=== PATIENT | male | born 1970 | race African-American/Black ===

== ENCOUNTER 2016-10-16 16:27 | Emergency (ER) | payer MEDICAID ==
[~2016-10-16] VITALS: Ht 190.5 cm; Wt 125.0 kg
[~2016-10-16 16:27] MED LIST: ASPI-1159 PO; LABE200T PO; LEVVL SUBCUT; LOSA50TA3 PO; NIFE60TA64 PO; TERA2CAP53 PO
[2016-10-16] MEDS ORDERED: KETOROLAC 60MG/2ML VIAL IM ONE (22:15)
[2016-10-16 22:57] LABS: CLARITY URINE CLOUDY (CLEAR); COLOR URINE YELLOW (YELLOW); GLUCOSE URINE 3+ (NEGATIVE); KETONES URINE 1+ (NEGATIVE); LEUKOCYTE ESTERASE URINE TRACE (NEGATIVE); NITRITE URINE NEGATIVE (NEGATIVE); OCCULT BLOOD URINE 3+ (NEGATIVE); PROTEIN URINE 3+ (NEGATIVE); SPECIFIC GRAVITY URINE 1.028 (1.005-1.030)
[2016-10-16 23:00] VITALS: BP 193/129
[2016-10-16 23:43] LABS: BASOPHILS % 1.6 % (0.0-2.0); EOSINOPHILS % 0.9 % (0.0-5.0); HEMATOCRIT. 40.2 % (42.0-52.0); HEMOGLOBIN. 13.8 g/dL (14.0-18.0); MEAN CORPUSCULAR HEMOGLOBIN 30.8 pg (28.0-32.0); MEAN CORPUSCULAR VOLUME 89.4 fL (80.0-94.0); MEAN PLATELET VOLUME 11.5 fl (7.4-10.4); MONOCYTES % 7.8 % (2.0-8.0); NEUTROPHILS % 68.7 % (40.0-76.0); PLATELET 151 x1000/uL (130-400); RED CELL DISTRIBUTION WIDTH 12.7 % (11.6-14.6)
[2016-10-17 00:23] LABS: CARBON DIOXIDE 27 mEq/L (21-32); CHLORIDE 98 mEq/L (98-107)
== END 2016-10-17 02:00 | disposition home or self-care (01) ==
LOC: ER 16:39
DX: R31.9 Hematuria, unspecified (principal); I10 Essential (primary) hypertension; E11.9 Type 2 diabetes mellitus without complications; Z86.73 Personal history of transient ischemic attack (TIA), and cerebral infarction without residual deficits; Z79.4 Long term (current) use of insulin; Z79.01 Long term (current) use of anticoagulants; Z79.82 Long term (current) use of aspirin
CPT/HCPCS: 36415; 80053; 81001; 85025; 96372; 99284; J1885; Z7610

== ENCOUNTER 2018-02-08 21:26 | Inpatient (IN) | payer SELFPAY ==
[~2018-02-08] VITALS: Ht 188 cm; Wt 108.0 kg
[~2018-02-08 21:26] MED LIST changes: -ASPI-1159 PO; -LABE200T PO; -LOSA50TA3 PO; -NIFE60TA64 PO; +TERA2CAP4 PO; -TERA2CAP53 PO
[2018-02-08] MEDS ORDERED: SODIUM CHLORIDE 0.9% 1,000 ML IV ONE (21:58)
[2018-02-08] MEDS ORDERED: HYDRALAZINE 20MG/ML VIAL IV ONE ×2 (22:00→23:45)
[2018-02-08 23:17] LABS: BASOPHILS % 0.7 % (0.0-2.0); EOSINOPHILS % 0.9 % (0.0-5.0); HEMATOCRIT. 38.7 % (42.0-52.0); HEMOGLOBIN. 13.2 g/dL (14.0-18.0); LYMPHOCYTES % 29.1 % (20.0-50.0); MEAN CORPUSCULAR VOLUME 90.9 fL (80.0-94.0); MEAN PLATELET VOLUME 12.3 fl (7.4-10.4); MONOCYTES % 7.6 % (2.0-8.0); NEUTROPHILS % 61.7 % (40.0-76.0); PLATELET 138 x1000/uL (130-400); RED BLOOD CELL COUNT 4.26 mill/uL (4.7-6.1); RED CELL DISTRIBUTION WIDTH 12.8 % (11.6-14.6)
[2018-02-08 23:22] LABS: CHLORIDE 91 mEq/L (98-107)
[2018-02-08 23:24] LABS: PROTHROMBIN TIME 9.6 sec (9.1-11.1)
[2018-02-08 23:35] LABS: BETA HYDROXYBUTYRATE 0.1 mMol/L (0.0-0.3); ETHANOL BLOOD < 10 mg/dL
[2018-02-08] MEDS ORDERED: POTASSIUM CHLORIDE 20MEQ TABLET SR PO ONE (23:45)
[2018-02-09] VITALS (11 sets, daily range): BP systolic 93–179; BP diastolic 47–111
[2018-02-09] MEDS ORDERED: INSULIN GLARGINE UD 100 UNITS/ML SYR SUBCUT ONE (00:15)
[2018-02-09] MEDS ORDERED: ASPIRIN 325MG TABLET PO ONE (01:00)
[2018-02-09] MEDS ORDERED: HYDRALAZINE 20MG/ML VIAL IV ONE (01:45)
[2018-02-09 01:53] LABS: CHLORIDE 97 mEq/L (98-107)
[2018-02-09] MEDS: SODIUM CHLORIDE 0.45% 1,000 ML IV SCH ×2 (02:00→07:00)
[2018-02-09] MEDS ORDERED: TERA1CAP4 PO (03:14)
[2018-02-09] MEDS ORDERED: LABE200T28 PO (03:14)
[2018-02-09] MEDS ORDERED: KEPP500 PO (03:14)
[2018-02-09] MEDS ORDERED: NIFE90TA2 PO (03:14)
[2018-02-09] MEDS ORDERED: DEXTROSE 50% WATER 50ML SYRINGE IV PRN ×2 (03:15→07:00)
[2018-02-09] MEDS ORDERED: NIFEDIPINE 60 MG PO SCH (03:15)
[2018-02-09] MEDS: NIFEDIPINE XL 60MG TAB PO SCH ×2 (03:30→22:29)
[2018-02-09] MEDS ORDERED: ACETAMINOPHEN 325MG TABLET PO PRN ×2 (03:30→06:45)
[2018-02-09] MEDS ORDERED: ONDANSETRON HCL 4MG/2ML INJ IV PRN ×2 (03:30→06:45)
[2018-02-09] MEDS: CLONIDINE 0.1MG TABLET PO PRN ×2 (04:36→08:42)
[2018-02-09] MEDS ORDERED: NA PHOS,M-B/NA PHOS,DI-BA ENEMA 118ML PR PRN (06:45)
[2018-02-09] MEDS ORDERED: IPRATROPIUM/ALBUTEROL 0.5-3(2.5)MG/3ML NEB INH PRN (06:45)
[2018-02-09] MEDS ORDERED: MAGNESIUM/ALUMINUM HYDROXIDE/SIMETHICONE 30ML UDC PO PRN (06:45)
[2018-02-09] MEDS ORDERED: ENOXAPARIN 40MG/0.4ML SYR SUBCUT SCH (06:45)
[2018-02-09] MEDS ORDERED: ACETAMINOPHEN 650MG/20.3ML UDC GT PRN (06:45)
[2018-02-09] MEDS ORDERED: DOCUSATE SODIUM 100MG CAPSULE PO PRN (06:45)
[2018-02-09] MEDS ORDERED: ACETAMINOPHEN 650MG SUPP PR PRN (06:45)
[2018-02-09] MEDS ORDERED: CLONIDINE 0.1MG TABLET PO PRN (06:45)
[2018-02-09] MEDS ORDERED: LABETALOL HCL 200 MG PO SCH (07:00)
[2018-02-09] MEDS ORDERED: BLOOD SUGAR DIAGNOSTIC STRIP TEST SCH (07:30)
[2018-02-09] MEDS ORDERED: INSULIN LISPRO 100 UNITS/ML SUBCUT SCH (08:00)
[2018-02-09] MEDS: BLOOD SUGAR DIAGNOSTIC STRIP TEST SCH ×4 (08:17→20:48)
[2018-02-09] MEDS: LEVETIRACETAM 500MG TABLET PO SCH ×2 (08:42→20:48)
[2018-02-09] MEDS: LABETALOL HCL 200MG TABLET PO SCH ×2 (08:43→22:32)
[2018-02-09] MEDS: ENOXAPARIN 30MG/0.3ML SYR SUBCUT SCH ×2 (08:43→20:51)
[2018-02-09] MEDS: INSULIN LISPRO 100 UNITS/ML SUBCUT SCH ×4 (08:44→20:50)
[2018-02-09 09:16] LABS: BASOPHILS % 0.6 % (0.0-2.0); EOSINOPHILS % 0.3 % (0.0-5.0); HEMATOCRIT. 42.7 % (42.0-52.0); HEMOGLOBIN. 14.5 g/dL (14.0-18.0); LYMPHOCYTES % 19.8 % (20.0-50.0); MEAN CORPUSCULAR HEMOGLOBIN 30.7 pg (28.0-32.0); MEAN CORPUSCULAR VOLUME 90.3 fL (80.0-94.0); MEAN PLATELET VOLUME 11.7 fl (7.4-10.4); NEUTROPHILS % 74.3 % (40.0-76.0); PLATELET 143 x1000/uL (130-400); RED BLOOD CELL COUNT 4.72 mill/uL (4.7-6.1); RED CELL DISTRIBUTION WIDTH 12.9 % (11.6-14.6)
[2018-02-09 09:30] LABS: CHLORIDE 96 mEq/L (98-107)
[2018-02-09] MEDS: INSULIN GLARGINE UD 100 UNITS/ML SYR SUBCUT SCH ×2 (09:48→22:20)
[2018-02-09 09:59] LABS: HDL CHOLESTEROL 36 mg/dL (40-59); LDL CHOLESTEROL 61 mg/dL (5-100)
[2018-02-09] MEDS ORDERED: INSULIN DETEMIR 20 UNIT SUBCUT SCH (10:00)
[2018-02-09] MEDS ORDERED: HYDRALAZINE 20MG/ML VIAL IV PRN (10:45)
[2018-02-09] MEDS: LOSARTAN POTASSIUM 25 MG TABLET PO SCH (11:28)
[2018-02-09] MEDS: POTASSIUM CHLORIDE 20MEQ TABLET SR PO SCH ×2 (11:28→16:58)
[2018-02-09] MEDS: SODIUM CHLORIDE 0.9% INJ 3ML FLUSH IVF SCH (13:19)
[2018-02-09] MEDS ORDERED: POTASSIUM CHLORIDE 20MEQ TABLET SR PO NR (14:45)
[2018-02-09 15:18] LABS: CREATINE KINASE MB FRACTION 4.3 ng/mL (0.5-3.6)
[2018-02-09 17:50] LABS: CLARITY URINE CLEAR (CLEAR); COLOR URINE YELLOW (YELLOW); KETONES URINE NEGATIVE (NEGATIVE); LEUKOCYTE ESTERASE URINE NEGATIVE (NEGATIVE); NITRITE URINE NEGATIVE (NEGATIVE); OCCULT BLOOD URINE NEGATIVE (NEGATIVE); PH URINE 5.5 (4.5-8.0); PROTEIN URINE 1+ (NEGATIVE); SPECIFIC GRAVITY URINE 1.036 (1.005-1.030)
[2018-02-09 18:00] LABS: *BARBITURATES SCREEN URINE NEGATIVE (NEGATIVE); *BENZODIAZEPINES SCREEN URINE NEGATIVE (NEGATIVE); *COCAINE SCREEN URINE NEGATIVE (NEGATIVE)
[2018-02-09] MEDS ORDERED: POTASSIUM CHLORIDE 20MEQ TABLET SR PO ONE (18:00)
[2018-02-09 18:01] LABS: *AMPHETAMINES SCREEN URINE NEGATIVE (NEGATIVE); CANNABINOID URINE SCREEN NEGATIVE (NEGATIVE); METHADONE URINE SCREEN NEGATIVE (NEGATIVE); OPIATES URINE SCREEN NEGATIVE (NEGATIVE); PHENCYCLIDINE URINE SCREEN NEGATIVE (NEGATIVE)
[2018-02-09] MEDS ORDERED: TERAZOSIN HCL 1MG CAPSULE PO SCH (21:00)
[2018-02-09 22:44] LABS: CREATINE KINASE MB FRACTION 3.6 ng/mL (0.5-3.6)
[2018-02-10] VITALS (12 sets, daily range): BP systolic 102–159; BP diastolic 55–106
[2018-02-10] MEDS ORDERED: POTASSIUM CHLORIDE 20MEQ TABLET SR PO PRN
[2018-02-10 05:38] LABS: BASOPHILS % 0.8 % (0.0-2.0); EOSINOPHILS % 2.2 % (0.0-5.0); HEMATOCRIT. 35.7 % (42.0-52.0); HEMOGLOBIN. 12.2 g/dL (14.0-18.0); MEAN CORPUSCULAR VOLUME 90.9 fL (80.0-94.0); MEAN PLATELET VOLUME 12.6 fl (7.4-10.4); MONOCYTES % 8.5 % (2.0-8.0); NEUTROPHILS % 46.5 % (40.0-76.0); PLATELET 135 x1000/uL (130-400); RED BLOOD CELL COUNT 3.93 mill/uL (4.7-6.1)
[2018-02-10 06:00] LABS: CHLORIDE 103 mEq/L (98-107)
[2018-02-10 06:08] LABS: HDL CHOLESTEROL 31 mg/dL (40-59); LDL CHOLESTEROL 51 mg/dL (5-100)
[2018-02-10] MEDS: BLOOD SUGAR DIAGNOSTIC STRIP TEST SCH ×2 (08:24→11:51)
[2018-02-10] MEDS: INSULIN LISPRO 100 UNITS/ML SUBCUT SCH ×2 (09:36→12:34)
[2018-02-10] MEDS: LABETALOL HCL 200MG TABLET PO SCH (09:37)
[2018-02-10] MEDS: INSULIN GLARGINE UD 100 UNITS/ML SYR SUBCUT SCH (09:37)
[2018-02-10] MEDS: ENOXAPARIN 30MG/0.3ML SYR SUBCUT SCH (09:37)
[2018-02-10] MEDS: NIFEDIPINE XL 60MG TAB PO SCH (09:38)
[2018-02-10] MEDS: LEVETIRACETAM 500MG TABLET PO SCH (09:38)
[2018-02-10] MEDS: LOSARTAN POTASSIUM 25 MG TABLET PO SCH (09:38)
[2018-02-10] MEDS: POTASSIUM CHLORIDE 20MEQ TABLET SR PO SCH (09:38)
[2018-02-10] MEDS: SODIUM CHLORIDE 0.45% 1,000 ML IV SCH (09:39)
[2018-02-10] MEDS ORDERED: MAGNESIUM SULFATE 2 GM in DEXTROSE 5% WATER 50 ML IV NR (12:00)
[2018-02-10] MEDS: SODIUM CHLORIDE 0.9% INJ 3ML FLUSH IVF SCH (13:10)
== END 2018-02-10 15:40 | disposition home or self-care (01) | DRG 53 ==
LOC: ER 21:26 → 5EST 02-09 00:53 → EDBEDREQTM 02-09 00:56 → EDBEDREQSVC 02-09 00:56 → EDBEDREQDT 02-09 00:56 → EDBEDREQ 02-09 00:56 → ENRESERV 02-09 01:46
PROVIDERS: ADMIT Family Medicine; ATTEND Family Medicine
DX: G40.909 Epilepsy, unspecified, not intractable, without status epilepticus (principal); N17.0 Acute kidney failure with tubular necrosis; I11.0 Hypertensive heart disease with heart failure; I50.32 Chronic diastolic (congestive) heart failure; I67.4 Hypertensive encephalopathy; E11.65 Type 2 diabetes mellitus with hyperglycemia; Z96.659 Presence of unspecified artificial knee joint; E87.6 Hypokalemia; N40.0 Benign prostatic hyperplasia without lower urinary tract symptoms; I25.2 Old myocardial infarction; Z86.73 Personal history of transient ischemic attack (TIA), and cerebral infarction without residual deficits; Z91.19 Patient's noncompliance with other medical treatment and regimen; Z79.84 Long term (current) use of oral hypoglycemic drugs
CPT/HCPCS: 36415; 71045; 80048; 80061; 80305; 82010; 82550; 82553; 82962; 83036; 83735; 84132; 84484; 85379; 93005; 93306; 93880; 93970; 96361; 96372; 96374; 96376; 99291; G0482; J0360; J1650; J1815; J3475; J7030; J7060

== ENCOUNTER 2018-10-29 14:10 | Inpatient (IN) | payer MEDICAID ==
[2018-10-29] VITALS (16 sets, daily range): BP systolic 127–175; BP diastolic 76–111
[~2018-10-29] VITALS: Ht 190.5 cm; Wt 83.5 kg
[~2018-10-29 14:10] MED LIST changes: +KEPP500 PO; +LABE200T28 PO; +NIFE90TA2 PO; +TERA1CAP4 PO
[2018-10-29 14:54] LABS: BASOPHILS % 1.3 % (0.0-2.0); EOSINOPHILS % 3.2 % (0.0-5.0); HEMOGLOBIN. 12.2 g/dL (14.0-18.0); LYMPHOCYTES % 25.1 % (20.0-50.0); MEAN CORPUSCULAR VOLUME 91.7 fL (80.0-94.0); MEAN PLATELET VOLUME 11.5 fl (7.4-10.4); MONOCYTES % 8.8 % (2.0-8.0); NEUTROPHILS % 61.6 % (40.0-76.0); PLATELET 140 x1000/uL (130-400); RED BLOOD CELL COUNT 3.93 mill/uL (4.7-6.1)
[2018-10-29 15:01] LABS: PROTHROMBIN TIME 10.1 sec (9.6-11.0)
[2018-10-29 15:03] LABS: CHLORIDE 105 mEq/L (98-107)
[2018-10-29 15:07] LABS: ETHANOL BLOOD < 10 mg/dL
[2018-10-29 15:10] LABS: LDL CHOLESTEROL 103 mg/dL (5-100)
[2018-10-29] MEDS ORDERED: LABETALOL 5MG/ML SYR 20 MG/4 ML SYRINGE IV ONE (15:15)
[2018-10-29] MEDS ORDERED: NICARDIPINE 40MG/200ML PREMIX 200 ML IV SCH (16:00)
[2018-10-29] MEDS ORDERED: CLONIDINE 0.1MG TABLET PO PRN ×2 (17:00→17:30)
[2018-10-29] MEDS ORDERED: LOSARTAN POTASSIUM 50 MG TABLET PO NR (17:06)
[2018-10-29 17:12] LABS: CLARITY URINE CLEAR (CLEAR); COLOR URINE YELLOW (YELLOW); KETONES URINE TRACE (NEGATIVE); LEUKOCYTE ESTERASE URINE NEGATIVE (NEGATIVE); NITRITE URINE NEGATIVE (NEGATIVE); OCCULT BLOOD URINE NEGATIVE (NEGATIVE); PROTEIN URINE 1+ (NEGATIVE); SPECIFIC GRAVITY URINE 1.023 (1.005-1.030)
[2018-10-29 17:24] LABS: *AMPHETAMINES SCREEN URINE NEGATIVE (NEGATIVE); *BARBITURATES SCREEN URINE NEGATIVE (NEGATIVE); *BENZODIAZEPINES SCREEN URINE NEGATIVE (NEGATIVE); *COCAINE SCREEN URINE NEGATIVE (NEGATIVE); CANNABINOID URINE SCREEN NEGATIVE (NEGATIVE); OPIATES URINE SCREEN NEGATIVE (NEGATIVE); PHENCYCLIDINE URINE SCREEN NEGATIVE (NEGATIVE)
[2018-10-29 17:25] LABS: METHADONE URINE SCREEN NEGATIVE (NEGATIVE)
[2018-10-29] MEDS ORDERED: HYDROCODONE/ACETAMINOPHEN 5/325MG TABLET PO PRN (17:30)
[2018-10-29] MEDS ORDERED: MAGNESIUM/ALUMINUM HYDROXIDE/SIMETHICONE 30ML UDC PO PRN (17:30)
[2018-10-29] MEDS ORDERED: IPRATROPIUM/ALBUTEROL 0.5-3(2.5)MG/3ML NEB INH PRN (17:30)
[2018-10-29] MEDS ORDERED: ACETAMINOPHEN 325MG TABLET PO PRN (17:30)
[2018-10-29] MEDS ORDERED: GUAIFENESIN 200MG/10ML SUGAR FREE UDC PO PRN (17:30)
[2018-10-29] MEDS ORDERED: DOCUSATE SODIUM 100MG CAPSULE PO PRN (17:30)
[2018-10-29] MEDS ORDERED: ONDANSETRON HCL 4MG/2ML INJ IV PRN (17:30)
[2018-10-29] MEDS ORDERED: DIPHENHYDRAMINE 50MG/ML VIAL IV PRN (17:30)
[2018-10-29 17:59] LABS: PHOSPHORUS 3.4 mg/dL (2.5-4.9)
[2018-10-29] MEDS ORDERED: NICARDIPINE 40MG/200ML PREMIX 200 ML IV PRN (19:15)
[2018-10-29] MEDS: LABETALOL HCL 200MG TABLET PO SCH (21:00)
[2018-10-29] MEDS: NICARDIPINE 50 MG in SODIUM CHLORIDE 0.9% 230 ML IV PRN (21:22)
[2018-10-29] MEDS: ENOXAPARIN 30MG/0.3ML SYR SUBCUT SCH (23:04)
[2018-10-30] VITALS (86 sets, daily range): BP systolic 75–192; BP diastolic 13–117
[2018-10-30] MEDS: NICARDIPINE 50 MG in SODIUM CHLORIDE 0.9% 230 ML IV PRN ×2 (00:29→07:58)
[2018-10-30 05:23] LABS: BASOPHILS % 0.5 % (0.0-2.0); EOSINOPHILS % 3.1 % (0.0-5.0); HEMATOCRIT. 37.3 % (42.0-52.0); HEMOGLOBIN. 12.7 g/dL (14.0-18.0); LYMPHOCYTES % 28.7 % (20.0-50.0); MEAN CORPUSCULAR HEMOGLOBIN 31.1 pg (28.0-32.0); MEAN CORPUSCULAR VOLUME 91.6 fL (80.0-94.0); MONOCYTES % 6.7 % (2.0-8.0); PLATELET 138 x1000/uL (130-400); RED BLOOD CELL COUNT 4.08 mill/uL (4.7-6.1); RED CELL DISTRIBUTION WIDTH 13.2 % (11.6-14.6)
[2018-10-30 05:32] LABS: CHLORIDE 104 mEq/L (98-107)
[2018-10-30 05:48] LABS: CREATINE KINASE 139 IU/L (39-308); CREATINE KINASE MB FRACTION 1.4 ng/mL (0.5-3.6)
[2018-10-30 05:49] LABS: LDL CHOLESTEROL 106 mg/dL (5-100)
[2018-10-30 05:50] LABS: HDL CHOLESTEROL 34 mg/dL (40-59)
[2018-10-30] MEDS ORDERED: DEXTROSE 50% WATER 50ML SYRINGE IV PRN (08:45)
[2018-10-30] MEDS ORDERED: SITA100T11 MT (08:55)
[2018-10-30] MEDS ORDERED: BENA20TA10 PO (08:55)
[2018-10-30] MEDS ORDERED: ERGO2000 PO (08:55)
[2018-10-30] MEDS ORDERED: POTASSIUM CHLORIDE 20MEQ TABLET SR PO NR (08:56)
[2018-10-30] MEDS: LABETALOL HCL 200MG TABLET PO SCH ×2 (10:42→21:49)
[2018-10-30] MEDS: LOSARTAN POTASSIUM 50 MG TABLET PO SCH ×2 (10:44→21:50)
[2018-10-30] MEDS: ENOXAPARIN 30MG/0.3ML SYR SUBCUT SCH (10:47)
[2018-10-30] MEDS: BLOOD SUGAR DIAGNOSTIC STRIP TEST SCH ×3 (11:30→21:40)
[2018-10-30] MEDS: INSULIN LISPRO 100 UNITS/ML SUBCUT SCH ×3 (13:02→21:48)
[2018-10-30] MEDS ORDERED: HYDRALAZINE 20MG/ML VIAL IV PRN (16:30)
[2018-10-30] MEDS: NIFEDIPINE XL 30MG TAB PO SCH (17:24)
[2018-10-30] MEDS: TERAZOSIN HCL 1MG CAPSULE PO SCH (21:50)
[2018-10-31] VITALS (68 sets, daily range): BP systolic 98–182; BP diastolic 44–135
[2018-10-31] MEDS: CLONIDINE 0.1MG TABLET PO PRN ×2 (05:12→22:50)
[2018-10-31 05:17] LABS: CHLORIDE 105 mEq/L (98-107)
[2018-10-31] MEDS: BLOOD SUGAR DIAGNOSTIC STRIP TEST SCH ×4 (06:17→20:20)
[2018-10-31] MEDS: INSULIN LISPRO 100 UNITS/ML SUBCUT SCH ×4 (06:22→20:28)
[2018-10-31] MEDS: NIFEDIPINE XL 30MG TAB PO SCH ×2 (08:54→17:40)
[2018-10-31] MEDS: LABETALOL HCL 200MG TABLET PO SCH ×2 (08:55→20:27)
[2018-10-31] MEDS: ENOXAPARIN 40MG/0.4ML SYR SUBCUT SCH (08:55)
[2018-10-31] MEDS: LOSARTAN POTASSIUM 50 MG TABLET PO SCH ×2 (08:55→20:27)
[2018-10-31 09:20] LABS: BASOPHILS % 0.8 % (0.0-2.0); EOSINOPHILS % 1.4 % (0.0-5.0); HEMATOCRIT. 39.6 % (42.0-52.0); HEMOGLOBIN. 13.2 g/dL (14.0-18.0); MEAN CORPUSCULAR HEMOGLOBIN 30.9 pg (28.0-32.0); MEAN CORPUSCULAR VOLUME 92.7 fL (80.0-94.0); MEAN PLATELET VOLUME 11.5 fl (7.4-10.4); MONOCYTES % 5.9 % (2.0-8.0); NEUTROPHILS % 75.9 % (40.0-76.0); PLATELET 154 x1000/uL (130-400); RED BLOOD CELL COUNT 4.28 mill/uL (4.7-6.1); RED CELL DISTRIBUTION WIDTH 13.3 % (11.6-14.6)
[2018-10-31] MEDS: CLOPIDOGREL 75MG TABLET PO SCH (17:40)
[2018-10-31] MEDS: TERAZOSIN HCL 1MG CAPSULE PO SCH (20:27)
[2018-10-31] MEDS: LEVETIRACETAM 500MG TABLET PO SCH (20:27)
[2018-10-31] MEDS ORDERED: ATORVASTATIN CALCIUM 40MG TABLET PO SCH (21:00)
[2018-10-31] MEDS ORDERED: ATORVASTATIN CALCIUM 20MG TABLET PO SCH (21:00)
[2018-11-01] VITALS (18 sets, daily range): BP systolic 118–171; BP diastolic 71–97
[2018-11-01 05:11] LABS: CHLORIDE 103 mEq/L (98-107)
[2018-11-01 05:15] LABS: BASOPHILS % 0.5 % (0.0-2.0); EOSINOPHILS % 2.3 % (0.0-5.0); HEMATOCRIT. 39.3 % (42.0-52.0); HEMOGLOBIN. 13.2 g/dL (14.0-18.0); LYMPHOCYTES % 27.3 % (20.0-50.0); MEAN CORPUSCULAR HEMOGLOBIN 30.6 pg (28.0-32.0); MEAN PLATELET VOLUME 11.2 fl (7.4-10.4); MONOCYTES % 7.8 % (2.0-8.0); NEUTROPHILS % 62.1 % (40.0-76.0); PLATELET 143 x1000/uL (130-400); RED BLOOD CELL COUNT 4.31 mill/uL (4.7-6.1); RED CELL DISTRIBUTION WIDTH 13.3 % (11.6-14.6)
[2018-11-01] MEDS: BLOOD SUGAR DIAGNOSTIC STRIP TEST SCH ×2 (06:50→11:30)
[2018-11-01] MEDS: INSULIN LISPRO 100 UNITS/ML SUBCUT SCH ×2 (06:53→13:15)
[2018-11-01] MEDS: LABETALOL HCL 200MG TABLET PO SCH (08:29)
[2018-11-01] MEDS: ENOXAPARIN 40MG/0.4ML SYR SUBCUT SCH (08:30)
[2018-11-01] MEDS: LEVETIRACETAM 500MG TABLET PO SCH (08:30)
[2018-11-01] MEDS: CLOPIDOGREL 75MG TABLET PO SCH (08:30)
[2018-11-01] MEDS: NIFEDIPINE XL 30MG TAB PO SCH ×2 (08:30→09:45)
[2018-11-01] MEDS: LOSARTAN POTASSIUM 50 MG TABLET PO SCH ×2 (08:31→09:45)
[2018-11-01] MEDS ORDERED: INSULIN GLARGINE UD 100 UNITS/ML SYR SUBCUT SCH (10:00)
== END 2018-11-01 13:50 | disposition home or self-care (01) | DRG 45 ==
LOC: ER 14:10 → MICUSO 15:51 → EDBEDREQSVC 15:55 → EDBEDREQ 15:55 → ENRESERV 17:45
PROVIDERS: ADMIT Internal Medicine; ATTEND Internal Medicine
DX: I63.9 Cerebral infarction, unspecified (principal); G93.41 Metabolic encephalopathy; N17.9 Acute kidney failure, unspecified; E11.22 Type 2 diabetes mellitus with diabetic chronic kidney disease; I31.3 Pericardial effusion (noninflammatory); E88.81 Metabolic syndrome and other insulin resistance; I12.9 Hypertensive chronic kidney disease with stage 1 through stage 4 chronic kidney disease, or unspecified chronic kidney disease; N18.9 Chronic kidney disease, unspecified; E87.6 Hypokalemia; D64.9 Anemia, unspecified; E78.5 Hyperlipidemia, unspecified; G40.909 Epilepsy, unspecified, not intractable, without status epilepticus; I16.1 Hypertensive emergency; N40.0 Benign prostatic hyperplasia without lower urinary tract symptoms; Z79.4 Long term (current) use of insulin; Z79.899 Other long term (current) drug therapy; I69.30 Unspecified sequelae of cerebral infarction
CPT/HCPCS: 36415; 70551; 71045; 80061; 80305; 80307; 80320; 80329; 82140; 82550; 82553; 82962; 83036; 83721; 83735; 83880; 84100; 84443; 84484; 85379; 93005; 93306; 93880; 93970; 96374; 96375; 97116; 97162; 97166; 99285; J0360; J1650; J1815; J3490; J7050; G0480

== ENCOUNTER 2019-07-25 14:07 | Inpatient (IN) | payer MEDICAID ==
[~2019-07-25] VITALS: Ht 182.9 cm; Wt 130.2 kg
[~2019-07-25 14:07] MED LIST changes: +BENA20TA10 PO; +ERGO2000 PO; +SITA100T11 MT
[2019-07-25] MEDS ORDERED: ALTEPLASE 100MG/VIAL IV NR (15:11)
[2019-07-25] MEDS ORDERED: ALTEPLASE IV NR (15:11)
[2019-07-25] MEDS ORDERED: CONTAINER EMPTY IV NR (15:11)
[2019-07-25 15:30] LABS: BASOPHILS % 0.5 % (0.0-2.0); EOSINOPHILS % 0.9 % (0.0-5.0); HEMATOCRIT. 43.5 % (42.0-52.0); HEMOGLOBIN. 14.7 g/dL (14.0-18.0); LYMPHOCYTES % 19.3 % (20.0-50.0); MEAN CORPUSCULAR HEMOGLOBIN 31.2 pg (28.0-32.0); MEAN CORPUSCULAR VOLUME 92.4 fL (80.0-94.0); MEAN PLATELET VOLUME 12.7 fl (7.4-10.4); MONOCYTES % 7.2 % (2.0-8.0); NEUTROPHILS % 72.1 % (40.0-76.0); PLATELET 130 x1000/uL (130-400); RED BLOOD CELL COUNT 4.71 mill/uL (4.7-6.1); RED CELL DISTRIBUTION WIDTH 12.7 % (11.6-14.6)
[2019-07-25] MEDS ORDERED: ALTEPLASE 81 MG in CONTAINER,EMPTY 1 BAG IV NR (15:30)
[2019-07-25 15:34] LABS: CHLORIDE 98 mEq/L (98-107)
[2019-07-25 15:36] LABS: PROTHROMBIN TIME 10.5 sec (9.6-11.0)
[2019-07-25 15:40] LABS: ETHANOL BLOOD < 10 mg/dL
[2019-07-25 15:42] LABS: LDL CHOLESTEROL 107 mg/dL (5-100)
[2019-07-25] MEDS ORDERED: SODIUM CHLORIDE 0.9% 1,000 ML IV ONE (15:43)
[2019-07-25] MEDS ORDERED: INSULIN REGULAR (HUMULIN R) 300UNITS/3ML IV ONE (15:45)
[2019-07-25] MEDS ORDERED: LABETALOL 5MG/ML SYR 20 MG/4 ML SYRINGE IV ONE (16:00)
[2019-07-25] MEDS ORDERED: HALOPERIDOL LACTATE 5MG/ML VIAL IM ONE ×2 (16:12→16:15)
[2019-07-25] MEDS ORDERED: LORAZEPAM 2MG/ML CPJ IV ONE (16:15)
[2019-07-25] MEDS ORDERED: NICARDIPINE 100 MG in SODIUM CHLORIDE 0.9% 60 ML IV ONE (16:15)
[2019-07-25 16:44] LABS: *BARBITURATES SCREEN URINE NEGATIVE (NEGATIVE)
[2019-07-25 16:45] LABS: *AMPHETAMINES SCREEN URINE NEGATIVE (NEGATIVE); *BENZODIAZEPINES SCREEN URINE NEGATIVE (NEGATIVE); *COCAINE SCREEN URINE NEGATIVE (NEGATIVE); CANNABINOID URINE SCREEN NEGATIVE (NEGATIVE); METHADONE URINE SCREEN NEGATIVE (NEGATIVE); OPIATES URINE SCREEN NEGATIVE (NEGATIVE); PHENCYCLIDINE URINE SCREEN NEGATIVE (NEGATIVE)
[2019-07-25] MEDS ORDERED: *NO ASPIRIN X 24 HOURS XX SCH (17:00)
[2019-07-25 17:28] LABS: CLARITY URINE CLEAR (CLEAR); COLOR URINE YELLOW (YELLOW); KETONES URINE NEGATIVE (NEGATIVE); LEUKOCYTE ESTERASE URINE NEGATIVE (NEGATIVE); NITRITE URINE NEGATIVE (NEGATIVE); OCCULT BLOOD URINE 1+ (NEGATIVE); PROTEIN URINE NEGATIVE (NEGATIVE); SPECIFIC GRAVITY URINE 1.015 (1.005-1.030)
[2019-07-25] MEDS ORDERED: HYDROCODONE/ACETAMINOPHEN 5/325MG TABLET PO PRN (19:15)
[2019-07-25] MEDS ORDERED: KCL 20MEQ/100ML PREMIX 100 ML IV NR (19:15)
[2019-07-25] MEDS ORDERED: IPRATROPIUM/ALBUTEROL 0.5-3(2.5)MG/3ML NEB HHN PRN (19:15)
[2019-07-25] MEDS ORDERED: ONDANSETRON HCL 4MG/2ML INJ IV PRN (19:15)
[2019-07-25] MEDS ORDERED: LORAZEPAM 0.5MG TABLET PO PRN (19:15)
[2019-07-25] MEDS ORDERED: ACETAMINOPHEN 325MG TABLET PO PRN (19:15)
[2019-07-25] MEDS ORDERED: IOHEXOL-350 100 ML BOTTLE ONE (20:03)
[2019-07-25 20:05] LABS: INR 1.2; PROTHROMBIN TIME 13.1 sec (9.6-11.0)
[2019-07-25] MEDS ORDERED: LEVETIRACETAM 500MG TABLET PO SCH (20:15)
[2019-07-25] MEDS: INSULIN GLARGINE UD 100 UNITS/ML SYR SUBCUT SCH ×2 (22:00→22:19)
[2019-07-26] VITALS (53 sets, daily range): BP systolic 140–204; BP diastolic 69–170
[2019-07-26] MEDS ORDERED: INSULIN LISPRO (HIGH DOSE) 100 UNITS/ML SUBCUT SCH (02:15)
[2019-07-26] MEDS ORDERED: DEXTROSE 50% WATER 50ML SYRINGE IV PRN (06:00)
[2019-07-26] MEDS: BLOOD SUGAR DIAGNOSTIC STRIP TEST SCH ×4 (07:08→21:00)
[2019-07-26] MEDS ORDERED: INSULIN LISPRO 100 UNITS/ML SUBCUT SCH (08:20)
[2019-07-26] MEDS ORDERED: LEVETIRACETAM 500MG TABLET PO SCH (09:00)
[2019-07-26] MEDS: LEVETIRACETAM 500MG PREMIX 100 ML IV SCH ×2 (09:00→21:22)
[2019-07-26] MEDS ORDERED: HALOPERIDOL LACTATE 5MG/ML VIAL IM PRN (09:30)
[2019-07-26] MEDS ORDERED: LORAZEPAM 2MG/ML CPJ IV PRN (09:30)
[2019-07-26] MEDS ORDERED: INSULIN GLARGINE UD 100 UNITS/ML SYR SUBCUT SCH ×2 (10:00)
[2019-07-26] MEDS: SODIUM CHLORIDE 0.9% 1,000 ML IV SCH ×2 (10:11→23:12)
[2019-07-26] MEDS: LABETALOL 5MG/ML SYR 20 MG/4 ML SYRINGE IV PRN ×2 (10:30→21:22)
[2019-07-26] MEDS: INSULIN GLARGINE UD 100 UNITS/ML SYR SUBCUT SCH ×2 (11:39→23:11)
[2019-07-26] MEDS: INSULIN LISPRO 100 UNITS/ML SUBCUT SCH ×3 (11:41→22:35)
[2019-07-26] MEDS ORDERED: NICARDIPINE 50 MG in SODIUM CHLORIDE 0.9% 230 ML IV PRN (12:00)
[2019-07-26] MEDS ORDERED: LABETALOL 5MG/ML SYR 20 MG/4 ML SYRINGE IV NR (16:00)
[2019-07-26] MEDS ORDERED: THIAMINE HCL 100 MG in SODIUM CHLORIDE 0.9% 49 ML IV SCH (16:30)
[2019-07-27] VITALS (31 sets, daily range): BP systolic 142–219; BP diastolic 83–153
[2019-07-27 00:13] LABS: BASOPHILS % 0.4 % (0.0-2.0); EOSINOPHILS % 0.2 % (0.0-5.0); HEMATOCRIT. 40.3 % (42.0-52.0); HEMOGLOBIN. 13.8 g/dL (14.0-18.0); LYMPHOCYTES % 17.2 % (20.0-50.0); MEAN CORPUSCULAR HEMOGLOBIN 31.5 pg (28.0-32.0); MEAN PLATELET VOLUME 12.2 fl (7.4-10.4); MONOCYTES % 5.9 % (2.0-8.0); NEUTROPHILS % 76.3 % (40.0-76.0); PLATELET 137 x1000/uL (130-400); RED BLOOD CELL COUNT 4.39 mill/uL (4.7-6.1)
[2019-07-27 00:27] LABS: CHLORIDE 108 mEq/L (98-107)
[2019-07-27 00:35] LABS: LDL CHOLESTEROL 92 mg/dL (5-100)
[2019-07-27 00:36] LABS: CREATINE KINASE 375 IU/L (39-308); HDL CHOLESTEROL 36 mg/dL (40-59)
[2019-07-27] MEDS ORDERED: POTASSIUM CHLORIDE INJ 40 MEQ in DEXT 5% WATER 500 ML IV NR ×2 (03:00→08:00)
[2019-07-27] MEDS: LABETALOL 5MG/ML SYR 20 MG/4 ML SYRINGE IV PRN (03:29)
[2019-07-27] MEDS: BLOOD SUGAR DIAGNOSTIC STRIP TEST SCH ×3 (05:53→21:32)
[2019-07-27] MEDS: INSULIN LISPRO 100 UNITS/ML SUBCUT SCH ×4 (06:37→21:38)
[2019-07-27] MEDS: LEVETIRACETAM 500MG PREMIX 100 ML IV SCH ×2 (09:00→21:40)
[2019-07-27] MEDS ORDERED: POTASSIUM CHLORIDE INJ 40 MEQ in DEXT 5% WATER 250 ML IV NR (09:05)
[2019-07-27] MEDS: NIFEDIPINE XL 60MG TAB PO SCH (09:11)
[2019-07-27] MEDS: LABETALOL HCL 200MG TABLET PO SCH ×2 (09:12→21:37)
[2019-07-27] MEDS: BENAZEPRIL 10MG TABLET PO SCH (09:12)
[2019-07-27] MEDS: CLONIDINE 0.1MG TABLET PO PRN (09:12)
[2019-07-27] MEDS ORDERED: LIDOCAINE HCL 1% 20ML VIAL (Pyxis) INJ ONE (10:12)
[2019-07-27] MEDS: INSULIN GLARGINE UD 100 UNITS/ML SYR SUBCUT SCH ×2 (12:54→21:38)
[2019-07-27] MEDS: SODIUM CHLORIDE 0.9% 1,000 ML IV SCH (12:55)
[2019-07-27] MEDS: LABETALOL HCL 20MG/4ML CARPUJECT IV PRN (14:28)
[2019-07-27 14:31] LABS: BASOPHILS % 0.3 % (0.0-2.0); EOSINOPHILS % 0.8 % (0.0-5.0); HEMOGLOBIN. 14.3 g/dL (14.0-18.0); LYMPHOCYTES % 17.4 % (20.0-50.0); MEAN CORPUSCULAR HEMOGLOBIN 31.4 pg (28.0-32.0); MEAN CORPUSCULAR VOLUME 92.4 fL (80.0-94.0); MEAN PLATELET VOLUME 11.5 fl (7.4-10.4); MONOCYTES % 7.7 % (2.0-8.0); NEUTROPHILS % 73.8 % (40.0-76.0); PLATELET 141 x1000/uL (130-400); RED BLOOD CELL COUNT 4.55 mill/uL (4.7-6.1); RED CELL DISTRIBUTION WIDTH 12.9 % (11.6-14.6)
[2019-07-27 14:37] LABS: CHLORIDE 108 mEq/L (98-107)
[2019-07-27 14:42] LABS: PHOSPHORUS 2.6 mg/dL (2.5-4.9)
[2019-07-28] VITALS (11 sets, daily range): BP systolic 132–186; BP diastolic 66–109
[2019-07-28] MEDS: SODIUM CHLORIDE 0.9% 1,000 ML IV SCH ×2 (02:00→14:50)
[2019-07-28 06:39] LABS: BASOPHILS % 0.8 % (0.0-2.0); EOSINOPHILS % 2.5 % (0.0-5.0); HEMATOCRIT. 40.7 % (42.0-52.0); HEMOGLOBIN. 13.9 g/dL (14.0-18.0); LYMPHOCYTES % 29.5 % (20.0-50.0); MEAN CORPUSCULAR HEMOGLOBIN 31.7 pg (28.0-32.0); MEAN CORPUSCULAR VOLUME 92.8 fL (80.0-94.0); MEAN PLATELET VOLUME 11.6 fl (7.4-10.4); MONOCYTES % 9.4 % (2.0-8.0); NEUTROPHILS % 57.8 % (40.0-76.0); PLATELET 140 x1000/uL (130-400); RED BLOOD CELL COUNT 4.39 mill/uL (4.7-6.1); RED CELL DISTRIBUTION WIDTH 13.2 % (11.6-14.6)
[2019-07-28] MEDS: BLOOD SUGAR DIAGNOSTIC STRIP TEST SCH ×4 (06:53→21:10)
[2019-07-28 07:08] LABS: CHLORIDE 106 mEq/L (98-107)
[2019-07-28] MEDS: INSULIN LISPRO 100 UNITS/ML SUBCUT SCH ×4 (07:20→21:00)
[2019-07-28] MEDS: LEVETIRACETAM 500MG PREMIX 100 ML IV SCH ×2 (08:33→21:07)
[2019-07-28] MEDS: BENAZEPRIL 10MG TABLET PO SCH (08:34)
[2019-07-28] MEDS: LABETALOL HCL 200MG TABLET PO SCH ×2 (08:34→21:09)
[2019-07-28] MEDS: NIFEDIPINE XL 60MG TAB PO SCH (08:34)
[2019-07-28] MEDS: INSULIN GLARGINE UD 100 UNITS/ML SYR SUBCUT SCH ×2 (10:34→21:08)
[2019-07-28] MEDS ORDERED: POTASSIUM CHLORIDE INJ 40 MEQ in DEXT 5% WATER 250 ML IV NR (11:15)
[2019-07-28] MEDS: CLOPIDOGREL 75MG TABLET PO SCH (11:38)
[2019-07-28] MEDS: ASPIRIN 81MG TABLET PO SCH (11:38)
[2019-07-28] MEDS: LABETALOL HCL 20MG/4ML CARPUJECT IV PRN (11:45)
[2019-07-28] MEDS: ATORVASTATIN CALCIUM 40MG TABLET PO SCH (21:08)
[2019-07-29] VITALS (15 sets, daily range): BP systolic 143–190; BP diastolic 95–129
[2019-07-29] MEDS: SODIUM CHLORIDE 0.9% 1,000 ML IV SCH (02:20)
[2019-07-29] MEDS: CLONIDINE 0.1MG TABLET PO PRN ×2 (04:38→12:32)
[2019-07-29] MEDS: BLOOD SUGAR DIAGNOSTIC STRIP TEST SCH ×4 (06:42→21:02)
[2019-07-29] MEDS: INSULIN LISPRO 100 UNITS/ML SUBCUT SCH ×4 (07:20→21:00)
[2019-07-29 07:39] LABS: BASOPHILS % 0.8 % (0.0-2.0); EOSINOPHILS % 3.8 % (0.0-5.0); HEMATOCRIT. 41.7 % (42.0-52.0); HEMOGLOBIN. 13.9 g/dL (14.0-18.0); LYMPHOCYTES % 27.9 % (20.0-50.0); MEAN CORPUSCULAR HEMOGLOBIN 31.2 pg (28.0-32.0); MEAN CORPUSCULAR VOLUME 93.2 fL (80.0-94.0); MEAN PLATELET VOLUME 12.1 fl (7.4-10.4); MONOCYTES % 7.1 % (2.0-8.0); NEUTROPHILS % 60.4 % (40.0-76.0); PLATELET 140 x1000/uL (130-400); RED BLOOD CELL COUNT 4.47 mill/uL (4.7-6.1)
[2019-07-29 07:40] LABS: CHLORIDE 108 mEq/L (98-107)
[2019-07-29] MEDS: ASPIRIN 81MG TABLET PO SCH (08:16)
[2019-07-29] MEDS: LEVETIRACETAM 500MG PREMIX 100 ML IV SCH (08:16)
[2019-07-29] MEDS: CLOPIDOGREL 75MG TABLET PO SCH (08:16)
[2019-07-29] MEDS: BENAZEPRIL 10MG TABLET PO SCH (08:18)
[2019-07-29] MEDS: LABETALOL HCL 200MG TABLET PO SCH ×2 (08:18→21:12)
[2019-07-29] MEDS: NIFEDIPINE XL 60MG TAB PO SCH (08:18)
[2019-07-29] MEDS: INSULIN GLARGINE UD 100 UNITS/ML SYR SUBCUT SCH ×2 (11:06→21:57)
[2019-07-29] MEDS ORDERED: POTASSIUM CHLORIDE INJ 40 MEQ in DEXT 5% WATER 250 ML IV NR (12:00)
[2019-07-29] MEDS: LEVETIRACETAM 500MG TABLET PO SCH (21:11)
[2019-07-29] MEDS: ATORVASTATIN CALCIUM 40MG TABLET PO SCH (21:12)
[2019-07-30] VITALS (17 sets, daily range): BP systolic 139–213; BP diastolic 79–152
[2019-07-30] MEDS: CLONIDINE 0.1MG TABLET PO PRN ×3 (03:05→22:41)
[2019-07-30] MEDS: BLOOD SUGAR DIAGNOSTIC STRIP TEST SCH ×4 (05:57→21:09)
[2019-07-30 06:25] LABS: CHLORIDE 108 mEq/L (98-107)
[2019-07-30 06:35] LABS: BASOPHILS % 0.6 % (0.0-2.0); EOSINOPHILS % 4.5 % (0.0-5.0); HEMATOCRIT. 39.6 % (42.0-52.0); HEMOGLOBIN. 13.5 g/dL (14.0-18.0); LYMPHOCYTES % 33.4 % (20.0-50.0); MEAN CORPUSCULAR HEMOGLOBIN 31.6 pg (28.0-32.0); MEAN CORPUSCULAR VOLUME 92.6 fL (80.0-94.0); MEAN PLATELET VOLUME 11.7 fl (7.4-10.4); MONOCYTES % 11.4 % (2.0-8.0); NEUTROPHILS % 50.1 % (40.0-76.0); PLATELET 148 x1000/uL (130-400); RED BLOOD CELL COUNT 4.28 mill/uL (4.7-6.1)
[2019-07-30] MEDS: INSULIN LISPRO 100 UNITS/ML SUBCUT SCH ×4 (07:20→21:00)
[2019-07-30] MEDS: NIFEDIPINE XL 60MG TAB PO SCH (08:19)
[2019-07-30] MEDS: LEVETIRACETAM 500MG TABLET PO SCH ×2 (08:20→21:17)
[2019-07-30] MEDS: CLOPIDOGREL 75MG TABLET PO SCH (08:20)
[2019-07-30] MEDS: LABETALOL HCL 200MG TABLET PO SCH ×2 (08:20→21:27)
[2019-07-30] MEDS: ASPIRIN 81MG TABLET PO SCH (08:20)
[2019-07-30] MEDS: BENAZEPRIL 10MG TABLET PO SCH (08:20)
[2019-07-30] MEDS: INSULIN GLARGINE UD 100 UNITS/ML SYR SUBCUT SCH ×2 (10:33→21:39)
[2019-07-30] MEDS ORDERED: POTASSIUM CHLORIDE INJ 40 MEQ in DEXT 5% WATER 250 ML IV NR (11:00)
[2019-07-30] MEDS: ATORVASTATIN CALCIUM 40MG TABLET PO SCH (21:27)
[2019-07-31] VITALS (12 sets, daily range): BP systolic 126–191; BP diastolic 72–123
[2019-07-31] MEDS: CLONIDINE 0.1MG TABLET PO PRN (05:55)
[2019-07-31] MEDS: BLOOD SUGAR DIAGNOSTIC STRIP TEST SCH ×3 (05:55→21:00)
[2019-07-31 06:15] LABS: BASOPHILS % 0.6 % (0.0-2.0); EOSINOPHILS % 2.8 % (0.0-5.0); HEMATOCRIT. 40.5 % (42.0-52.0); HEMOGLOBIN. 13.6 g/dL (14.0-18.0); LYMPHOCYTES % 34.7 % (20.0-50.0); MEAN CORPUSCULAR HEMOGLOBIN 31.2 pg (28.0-32.0); MEAN PLATELET VOLUME 11.6 fl (7.4-10.4); MONOCYTES % 9.3 % (2.0-8.0); NEUTROPHILS % 52.6 % (40.0-76.0); PLATELET 154 x1000/uL (130-400); RED BLOOD CELL COUNT 4.35 mill/uL (4.7-6.1); RED CELL DISTRIBUTION WIDTH 13.2 % (11.6-14.6)
[2019-07-31 06:27] LABS: CHLORIDE 107 mEq/L (98-107)
[2019-07-31] MEDS: INSULIN LISPRO 100 UNITS/ML SUBCUT SCH ×3 (07:20→21:34)
[2019-07-31] MEDS: CLOPIDOGREL 75MG TABLET PO SCH (09:37)
[2019-07-31] MEDS: ASPIRIN 81MG TABLET PO SCH (09:37)
[2019-07-31] MEDS: BENAZEPRIL 10MG TABLET PO SCH (09:38)
[2019-07-31] MEDS: NIFEDIPINE XL 60MG TAB PO SCH ×2 (09:38→21:39)
[2019-07-31] MEDS: LEVETIRACETAM 500MG TABLET PO SCH ×2 (09:53→21:36)
[2019-07-31] MEDS: LABETALOL HCL 200MG TABLET PO SCH ×2 (09:54→21:00)
[2019-07-31] MEDS ORDERED: POTASSIUM CHLORIDE 20MEQ TABLET SR PO NR (10:00)
[2019-07-31] MEDS ORDERED: NIFEDIPINE XL 60MG TAB PO SCH (10:00)
[2019-07-31] MEDS: CLONIDINE 0.2MG TABLET PO SCH ×2 (10:29→17:14)
[2019-07-31] MEDS: INSULIN GLARGINE UD 100 UNITS/ML SYR SUBCUT SCH ×2 (13:23→21:35)
[2019-07-31] MEDS: ATORVASTATIN CALCIUM 40MG TABLET PO SCH (21:37)
[2019-08-01] VITALS (12 sets, daily range): BP systolic 132–161; BP diastolic 43–115
[2019-08-01] MEDS: CLONIDINE 0.1MG TABLET PO PRN (00:45)
[2019-08-01] MEDS: BLOOD SUGAR DIAGNOSTIC STRIP TEST SCH ×4 (06:25→20:36)
[2019-08-01] MEDS: INSULIN LISPRO 100 UNITS/ML SUBCUT SCH ×4 (06:25→20:36)
[2019-08-01 06:40] LABS: BASOPHILS % 0.8 % (0.0-2.0); EOSINOPHILS % 3.2 % (0.0-5.0); HEMOGLOBIN. 13.4 g/dL (14.0-18.0); LYMPHOCYTES % 31.7 % (20.0-50.0); MEAN CORPUSCULAR HEMOGLOBIN 31.7 pg (28.0-32.0); MEAN CORPUSCULAR VOLUME 91.9 fL (80.0-94.0); MEAN PLATELET VOLUME 11.7 fl (7.4-10.4); MONOCYTES % 9.2 % (2.0-8.0); NEUTROPHILS % 55.1 % (40.0-76.0); PLATELET 156 x1000/uL (130-400); RED BLOOD CELL COUNT 4.24 mill/uL (4.7-6.1); RED CELL DISTRIBUTION WIDTH 12.9 % (11.6-14.6)
[2019-08-01 06:55] LABS: CHLORIDE 106 mEq/L (98-107)
[2019-08-01] MEDS: BENAZEPRIL 10MG TABLET PO SCH (08:44)
[2019-08-01] MEDS: CLOPIDOGREL 75MG TABLET PO SCH (08:44)
[2019-08-01] MEDS: LEVETIRACETAM 500MG TABLET PO SCH ×2 (08:44→20:37)
[2019-08-01] MEDS: NIFEDIPINE XL 60MG TAB PO SCH ×2 (08:45→20:38)
[2019-08-01] MEDS: CLONIDINE 0.2MG TABLET PO SCH ×2 (08:45→16:31)
[2019-08-01] MEDS: LABETALOL HCL 200MG TABLET PO SCH ×2 (08:45→20:39)
[2019-08-01] MEDS: ASPIRIN 81MG TABLET PO SCH (08:45)
[2019-08-01] MEDS ORDERED: POTASSIUM CHLORIDE 20MEQ/PACKET PO NR (10:45)
[2019-08-01] MEDS: INSULIN GLARGINE UD 100 UNITS/ML SYR SUBCUT SCH ×2 (10:53→22:25)
[2019-08-01] MEDS: ATORVASTATIN CALCIUM 40MG TABLET PO SCH (20:38)
[2019-08-02] VITALS (15 sets, daily range): BP systolic 133–168; BP diastolic 81–121
[2019-08-02] MEDS: BLOOD SUGAR DIAGNOSTIC STRIP TEST SCH ×4 (06:40→21:01)
[2019-08-02] MEDS: INSULIN LISPRO 100 UNITS/ML SUBCUT SCH ×4 (06:40→21:00)
[2019-08-02 07:36] LABS: BASOPHILS % 0.8 % (0.0-2.0); EOSINOPHILS % 2.7 % (0.0-5.0); HEMATOCRIT. 40.6 % (42.0-52.0); HEMOGLOBIN. 13.5 g/dL (14.0-18.0); LYMPHOCYTES % 29.1 % (20.0-50.0); MEAN CORPUSCULAR VOLUME 93.4 fL (80.0-94.0); MEAN PLATELET VOLUME 11.8 fl (7.4-10.4); MONOCYTES % 8.7 % (2.0-8.0); NEUTROPHILS % 58.7 % (40.0-76.0); PLATELET 159 x1000/uL (130-400); RED BLOOD CELL COUNT 4.35 mill/uL (4.7-6.1); RED CELL DISTRIBUTION WIDTH 12.8 % (11.6-14.6)
[2019-08-02 08:00] LABS: CHLORIDE 105 mEq/L (98-107)
[2019-08-02] MEDS: LEVETIRACETAM 500MG TABLET PO SCH ×2 (09:15→21:07)
[2019-08-02] MEDS: ASPIRIN 81MG TABLET PO SCH (09:15)
[2019-08-02] MEDS: NIFEDIPINE XL 60MG TAB PO SCH ×2 (09:15→21:06)
[2019-08-02] MEDS: CLOPIDOGREL 75MG TABLET PO SCH (09:15)
[2019-08-02] MEDS: BENAZEPRIL 10MG TABLET PO SCH (09:16)
[2019-08-02] MEDS: CLONIDINE 0.2MG TABLET PO SCH ×2 (09:16→17:51)
[2019-08-02] MEDS: LABETALOL HCL 200MG TABLET PO SCH ×3 (09:17→21:06)
[2019-08-02] MEDS: INSULIN GLARGINE UD 100 UNITS/ML SYR SUBCUT SCH ×2 (10:00→22:33)
[2019-08-02] MEDS: CLONIDINE 0.1MG TABLET PO PRN (12:58)
[2019-08-02] MEDS: ATORVASTATIN CALCIUM 40MG TABLET PO SCH (21:06)
[2019-08-03] VITALS (12 sets, daily range): BP systolic 122–153; BP diastolic 73–100
[2019-08-03] MEDS: INSULIN LISPRO 100 UNITS/ML SUBCUT SCH ×4 (06:53→21:00)
[2019-08-03] MEDS: BLOOD SUGAR DIAGNOSTIC STRIP TEST SCH ×4 (06:53→21:18)
[2019-08-03] MEDS: LEVETIRACETAM 500MG TABLET PO SCH ×2 (08:56→21:18)
[2019-08-03] MEDS: NIFEDIPINE XL 60MG TAB PO SCH ×2 (08:56→21:18)
[2019-08-03] MEDS: ASPIRIN 81MG TABLET PO SCH (08:56)
[2019-08-03] MEDS: CLOPIDOGREL 75MG TABLET PO SCH (08:56)
[2019-08-03] MEDS: LABETALOL HCL 200MG TABLET PO SCH (08:57)
[2019-08-03] MEDS: BENAZEPRIL 10MG TABLET PO SCH (08:57)
[2019-08-03] MEDS: CLONIDINE 0.2MG TABLET PO SCH ×2 (08:57→17:59)
[2019-08-03] MEDS: INSULIN GLARGINE UD 100 UNITS/ML SYR SUBCUT SCH ×2 (10:00→18:00)
[2019-08-03 10:18] LABS: BASOPHILS % 0.8 % (0.0-2.0); EOSINOPHILS % 1.4 % (0.0-5.0); HEMATOCRIT. 39.5 % (42.0-52.0); HEMOGLOBIN. 13.2 g/dL (14.0-18.0); LYMPHOCYTES % 26.1 % (20.0-50.0); MEAN CORPUSCULAR HEMOGLOBIN 31.3 pg (28.0-32.0); MEAN CORPUSCULAR VOLUME 93.9 fL (80.0-94.0); NEUTROPHILS % 63.7 % (40.0-76.0); PLATELET 154 x1000/uL (130-400); RED BLOOD CELL COUNT 4.21 mill/uL (4.7-6.1); RED CELL DISTRIBUTION WIDTH 12.8 % (11.6-14.6)
[2019-08-03 10:28] LABS: CHLORIDE 104 mEq/L (98-107)
[2019-08-03] MEDS ORDERED: LABETALOL HCL 200MG TABLET PO SCH ×2 (21:00)
[2019-08-03] MEDS: ATORVASTATIN CALCIUM 40MG TABLET PO SCH (21:18)
== END 2019-08-03 22:05 | DRG 45 ==
LOC: ER 14:07 → EDBEDREQTM 16:17 → EDBEDREQSVC 16:17 → EDBEDREQ 16:17 → ENRESERV 07-26 01:19 → CVICU 07-26 02:50 → 3WST 07-27 12:00
PROVIDERS: ADMIT Internal Medicine; ATTEND Internal Medicine
PROC: 3E03317 Introduction of Other Thrombolytic into Peripheral Vein, Percutaneous Approach (ICD-10-PCS; 2019-07-25)
PROC: 05HY33Z Insertion of Infusion Device into Upper Vein, Percutaneous Approach (ICD-10-PCS; 2019-07-27)
PROC: B54MZZA Ultrasonography of Right Upper Extremity Veins, Guidance (ICD-10-PCS; 2019-07-27)
PROC: 4A10X4Z Monitoring of Central Nervous Electrical Activity, External Approach (ICD-10-PCS; principal; 2019-07-28)
DX: I63.81 Other cerebral infarction due to occlusion or stenosis of small artery (principal); E11.00 Type 2 diabetes mellitus with hyperosmolarity without nonketotic hyperglycemic-hyperosmolar coma (NKHHC); G92 Toxic encephalopathy; N17.9 Acute kidney failure, unspecified; I48.91 Unspecified atrial fibrillation; G40.909 Epilepsy, unspecified, not intractable, without status epilepticus; Z78.1 Physical restraint status; E78.5 Hyperlipidemia, unspecified; E11.65 Type 2 diabetes mellitus with hyperglycemia; R47.1 Dysarthria and anarthria; I10 Essential (primary) hypertension; E87.6 Hypokalemia; I45.10 Unspecified right bundle-branch block; R29.702 NIHSS score 2; Z79.4 Long term (current) use of insulin; Z79.899 Other long term (current) drug therapy; R00.1 Bradycardia, unspecified
CPT/HCPCS: 36415; 70496; 70498; 70551; 71045; 76937; 80048; 80053; 80061; 80305; 80320; 81003; 82140; 82550; 82962; 83036; 83721; 83735; 84100; 84484; 85025; 92610; 93005; 93306; 95816; 97110; 97116; 97162; 97166; 97530; 97535; 99291; C1725; J1630; J1815; J1953; J2060; J2997; J3411; J3480; J3490; J7030; J7050; J7060; Q9967; G0480

== ENCOUNTER 2019-08-03 21:48 | Inpatient (IN) | payer MEDICAID ==
[~2019-08-03] VITALS: Ht 182.9 cm; Wt 101.2 kg
[2019-08-03 21:48] VITALS: BP 145/84
[2019-08-03] MEDS ORDERED: ONDANSETRON HCL 4MG/2ML INJ IV PRN (23:15)
[2019-08-03] MEDS ORDERED: IPRATROPIUM/ALBUTEROL 0.5-3(2.5)MG/3ML NEB HHN PRN (23:15)
[2019-08-03] MEDS ORDERED: HALOPERIDOL LACTATE 5MG/ML VIAL IM PRN (23:15)
[2019-08-03] MEDS ORDERED: ACETAMINOPHEN 325MG TABLET PO PRN (23:15)
[2019-08-03] MEDS ORDERED: CLONIDINE 0.1MG TABLET PO PRN (23:15)
[2019-08-03] MEDS ORDERED: DEXTROSE 50% WATER 50ML SYRINGE IV PRN (23:15)
[2019-08-04] MEDS ORDERED: ATORVASTATIN CALCIUM 40MG TABLET PO SCH
[2019-08-04] MEDS ORDERED: INSULIN GLARGINE UD 100 UNITS/ML SYR SUBCUT SCH
[2019-08-04 04:46] LABS: BASOPHILS % 0.7 % (0.0-2.0); EOSINOPHILS % 1.6 % (0.0-5.0); HEMATOCRIT. 39.1 % (42.0-52.0); HEMOGLOBIN. 13.3 g/dL (14.0-18.0); LYMPHOCYTES % 35.1 % (20.0-50.0); MEAN CORPUSCULAR HEMOGLOBIN 31.4 pg (28.0-32.0); MEAN CORPUSCULAR VOLUME 92.5 fL (80.0-94.0); MEAN PLATELET VOLUME 11.7 fl (7.4-10.4); MONOCYTES % 10.1 % (2.0-8.0); NEUTROPHILS % 52.5 % (40.0-76.0); PLATELET 173 x1000/uL (130-400); RED BLOOD CELL COUNT 4.23 mill/uL (4.7-6.1)
[2019-08-04 04:55] LABS: CHLORIDE 103 mEq/L (98-107)
[2019-08-04] MEDS: BLOOD SUGAR DIAGNOSTIC STRIP TEST SCH ×4 (05:47→21:20)
[2019-08-04 07:45] VITALS: BP 124/77
[2019-08-04] MEDS: LABETALOL HCL 200MG TABLET PO SCH ×2 (08:23→22:41)
[2019-08-04] MEDS: LEVETIRACETAM 500MG TABLET PO SCH ×2 (08:23→21:16)
[2019-08-04] MEDS: CLONIDINE 0.2MG TABLET PO SCH ×2 (08:23→21:16)
[2019-08-04] MEDS: ASPIRIN 81MG TABLET PO SCH (08:23)
[2019-08-04] MEDS: BENAZEPRIL 10MG TABLET PO SCH (08:23)
[2019-08-04] MEDS: CLOPIDOGREL 75MG TABLET PO SCH (08:23)
[2019-08-04] MEDS: INSULIN LISPRO 100 UNITS/ML SUBCUT SCH ×4 (08:32→22:17)
[2019-08-04] MEDS: NIFEDIPINE XL 60MG TAB PO SCH ×2 (08:45→22:41)
[2019-08-04] MEDS ORDERED: NA PHOS,M-B/NA PHOS,DI-BA ENEMA 118ML PR ONE (14:30)
[2019-08-04] MEDS: LACTULOSE 20G/30ML UDC PO SCH ×2 (16:13→20:00)
[2019-08-04 20:00] VITALS: BP 154/92
[2019-08-04] MEDS: ATORVASTATIN CALCIUM 40MG TABLET PO SCH (21:17)
[2019-08-05] MEDS: LACTULOSE 20G/30ML UDC PO SCH
[2019-08-05] MEDS: BLOOD SUGAR DIAGNOSTIC STRIP TEST SCH ×4 (07:04→21:44)
[2019-08-05] MEDS: INSULIN LISPRO 100 UNITS/ML SUBCUT SCH ×4 (07:27→23:08)
[2019-08-05 07:49] VITALS: BP 140/82
[2019-08-05] MEDS: LABETALOL HCL 200MG TABLET PO SCH ×2 (09:29→23:07)
[2019-08-05] MEDS: CLOPIDOGREL 75MG TABLET PO SCH (09:29)
[2019-08-05] MEDS: CLONIDINE 0.2MG TABLET PO SCH ×2 (09:29→21:40)
[2019-08-05] MEDS: LEVETIRACETAM 500MG TABLET PO SCH ×2 (09:29→21:40)
[2019-08-05] MEDS: NIFEDIPINE XL 60MG TAB PO SCH ×2 (09:30→21:00)
[2019-08-05] MEDS: ASPIRIN 81MG TABLET PO SCH (09:30)
[2019-08-05] MEDS: BENAZEPRIL 10MG TABLET PO SCH (09:43)
[2019-08-05 20:00] VITALS: BP 155/91
[2019-08-05] MEDS: ATORVASTATIN CALCIUM 40MG TABLET PO SCH (21:41)
[2019-08-06] MEDS: BLOOD SUGAR DIAGNOSTIC STRIP TEST SCH ×4 (06:25→20:59)
[2019-08-06] MEDS: INSULIN LISPRO 100 UNITS/ML SUBCUT SCH ×4 (06:35→21:06)
[2019-08-06 07:56] VITALS: BP 133/83
[2019-08-06] MEDS: ASPIRIN 81MG TABLET PO SCH (08:57)
[2019-08-06] MEDS: BENAZEPRIL 10MG TABLET PO SCH (08:57)
[2019-08-06] MEDS: LEVETIRACETAM 500MG TABLET PO SCH ×2 (08:57→20:59)
[2019-08-06] MEDS: CLOPIDOGREL 75MG TABLET PO SCH (08:57)
[2019-08-06] MEDS: NIFEDIPINE XL 60MG TAB PO SCH ×2 (08:57→21:00)
[2019-08-06] MEDS: LABETALOL HCL 200MG TABLET PO SCH ×2 (08:57→21:00)
[2019-08-06] MEDS: CLONIDINE 0.2MG TABLET PO SCH ×2 (08:57→21:00)
[2019-08-06 20:00] VITALS: BP 131/75
[2019-08-06] MEDS: ATORVASTATIN CALCIUM 40MG TABLET PO SCH (20:59)
[2019-08-06 21:50] VITALS: BP 134/51
[2019-08-07] MEDS: BISACODYL 5MG TABLET PO PRN ×2 (05:50→17:00)
[2019-08-07] MEDS: BLOOD SUGAR DIAGNOSTIC STRIP TEST SCH ×4 (05:50→20:32)
[2019-08-07] MEDS: INSULIN LISPRO 100 UNITS/ML SUBCUT SCH ×4 (06:35→20:41)
[2019-08-07 08:04] VITALS: BP 125/73
[2019-08-07] MEDS: BENAZEPRIL 10MG TABLET PO SCH (09:00)
[2019-08-07] MEDS: NIFEDIPINE XL 60MG TAB PO SCH ×2 (09:16→20:32)
[2019-08-07] MEDS: ASPIRIN 81MG TABLET PO SCH (09:17)
[2019-08-07] MEDS: CLONIDINE 0.2MG TABLET PO SCH ×2 (09:17→20:36)
[2019-08-07] MEDS: LABETALOL HCL 200MG TABLET PO SCH ×2 (09:17→20:32)
[2019-08-07] MEDS: CLOPIDOGREL 75MG TABLET PO SCH (09:17)
[2019-08-07] MEDS: LEVETIRACETAM 500MG TABLET PO SCH ×2 (09:17→20:32)
[2019-08-07 20:00] VITALS: BP 161/99
[2019-08-07] MEDS: ATORVASTATIN CALCIUM 40MG TABLET PO SCH (20:32)
[2019-08-07 23:54] VITALS: BP 156/88
[2019-08-08] MEDS: BLOOD SUGAR DIAGNOSTIC STRIP TEST SCH ×4 (05:18→20:15)
[2019-08-08] MEDS: BISACODYL 5MG TABLET PO PRN (06:39)
[2019-08-08] MEDS: INSULIN LISPRO 100 UNITS/ML SUBCUT SCH ×4 (06:39→20:15)
[2019-08-08 08:17] VITALS: BP 130/81
[2019-08-08] MEDS: CLONIDINE 0.2MG TABLET PO SCH ×2 (09:01→20:14)
[2019-08-08] MEDS: ASPIRIN 81MG TABLET PO SCH (09:02)
[2019-08-08] MEDS: CLOPIDOGREL 75MG TABLET PO SCH (09:02)
[2019-08-08] MEDS: LABETALOL HCL 200MG TABLET PO SCH ×2 (09:02→20:14)
[2019-08-08] MEDS: NIFEDIPINE XL 60MG TAB PO SCH ×2 (09:02→20:14)
[2019-08-08] MEDS: LEVETIRACETAM 500MG TABLET PO SCH ×2 (09:02→20:14)
[2019-08-08] MEDS: BENAZEPRIL 10MG TABLET PO SCH (09:24)
[2019-08-08 20:00] VITALS: BP 169/106
[2019-08-08] MEDS: ATORVASTATIN CALCIUM 40MG TABLET PO SCH (20:14)
[2019-08-08 21:52] VITALS: BP 165/97
[2019-08-08] MEDS: INSULIN GLARGINE UD 100 UNITS/ML SYR SUBCUT SCH (21:52)
[2019-08-09 02:23] VITALS: BP 160/95
[2019-08-09 06:01] VITALS: BP 149/81
[2019-08-09] MEDS: BLOOD SUGAR DIAGNOSTIC STRIP TEST SCH ×4 (06:17→20:53)
[2019-08-09] MEDS: INSULIN LISPRO 100 UNITS/ML SUBCUT SCH ×4 (06:45→22:30)
[2019-08-09 07:01] LABS: BASOPHILS % 0.8 % (0.0-2.0); EOSINOPHILS % 2.1 % (0.0-5.0); HEMATOCRIT. 38.1 % (42.0-52.0); LYMPHOCYTES % 29.1 % (20.0-50.0); MEAN CORPUSCULAR HEMOGLOBIN 31.4 pg (28.0-32.0); MEAN CORPUSCULAR VOLUME 91.9 fL (80.0-94.0); MEAN PLATELET VOLUME 11.2 fl (7.4-10.4); MONOCYTES % 10.1 % (2.0-8.0); NEUTROPHILS % 57.9 % (40.0-76.0); PLATELET 167 x1000/uL (130-400); RED BLOOD CELL COUNT 4.15 mill/uL (4.7-6.1); RED CELL DISTRIBUTION WIDTH 12.8 % (11.6-14.6)
[2019-08-09 07:25] LABS: CHLORIDE 105 mEq/L (98-107)
[2019-08-09 08:00] VITALS: BP 125/73
[2019-08-09] MEDS: CLOPIDOGREL 75MG TABLET PO SCH (09:09)
[2019-08-09] MEDS: NIFEDIPINE XL 60MG TAB PO SCH ×2 (09:09→20:44)
[2019-08-09] MEDS: LEVETIRACETAM 500MG TABLET PO SCH ×2 (09:09→20:43)
[2019-08-09] MEDS: CLONIDINE 0.2MG TABLET PO SCH ×2 (09:10→20:45)
[2019-08-09] MEDS: LABETALOL HCL 200MG TABLET PO SCH ×2 (09:10→20:44)
[2019-08-09] MEDS: ASPIRIN 81MG TABLET PO SCH (09:10)
[2019-08-09] MEDS: BENAZEPRIL 10MG TABLET PO SCH (09:51)
[2019-08-09] MEDS ORDERED: POTASSIUM CHLORIDE 20MEQ TABLET SR PO NR (10:00)
[2019-08-09 20:00] VITALS: BP 144/96
[2019-08-09] MEDS: ATORVASTATIN CALCIUM 40MG TABLET PO SCH (20:44)
[2019-08-09] MEDS: INSULIN GLARGINE UD 100 UNITS/ML SYR SUBCUT SCH (22:31)
[2019-08-10] MEDS: BLOOD SUGAR DIAGNOSTIC STRIP TEST SCH ×4 (05:37→21:13)
[2019-08-10] MEDS: INSULIN LISPRO 100 UNITS/ML SUBCUT SCH ×4 (05:39→21:23)
[2019-08-10 07:55] VITALS: BP 144/96
[2019-08-10] MEDS: BENAZEPRIL 10MG TABLET PO SCH (09:05)
[2019-08-10] MEDS: NIFEDIPINE XL 60MG TAB PO SCH ×2 (09:05→21:13)
[2019-08-10] MEDS: ASPIRIN 81MG TABLET PO SCH (09:05)
[2019-08-10] MEDS: LEVETIRACETAM 500MG TABLET PO SCH ×2 (09:05→21:12)
[2019-08-10] MEDS: CLOPIDOGREL 75MG TABLET PO SCH (09:05)
[2019-08-10] MEDS: LABETALOL HCL 200MG TABLET PO SCH ×2 (09:05→21:13)
[2019-08-10] MEDS: CLONIDINE 0.2MG TABLET PO SCH ×2 (09:05→21:12)
[2019-08-10] MEDS: BISACODYL 5MG TABLET PO PRN (16:38)
[2019-08-10 20:00] VITALS: BP 152/96
[2019-08-10] MEDS: ATORVASTATIN CALCIUM 40MG TABLET PO SCH (21:12)
[2019-08-10] MEDS: INSULIN GLARGINE UD 100 UNITS/ML SYR SUBCUT SCH (21:22)
[2019-08-11] MEDS: BLOOD SUGAR DIAGNOSTIC STRIP TEST SCH ×4 (06:27→21:49)
[2019-08-11] MEDS: INSULIN LISPRO 100 UNITS/ML SUBCUT SCH ×4 (06:28→22:05)
[2019-08-11 08:00] VITALS: BP 158/99
[2019-08-11] MEDS: LEVETIRACETAM 500MG TABLET PO SCH ×2 (08:04→21:49)
[2019-08-11] MEDS: LABETALOL HCL 200MG TABLET PO SCH ×2 (08:05→21:49)
[2019-08-11] MEDS: NIFEDIPINE XL 60MG TAB PO SCH ×2 (08:05→21:48)
[2019-08-11] MEDS: ASPIRIN 81MG TABLET PO SCH (08:05)
[2019-08-11] MEDS: CLONIDINE 0.2MG TABLET PO SCH ×2 (08:06→21:49)
[2019-08-11] MEDS: BENAZEPRIL 10MG TABLET PO SCH (08:06)
[2019-08-11] MEDS: CLOPIDOGREL 75MG TABLET PO SCH (08:06)
[2019-08-11] MEDS: SPIRONOLACTONE 25MG TABLET PO SCH (10:27)
[2019-08-11 20:00] VITALS: BP_SYST 109; BP_SYST 169; BP_DIAS 98
[2019-08-11] MEDS: ATORVASTATIN CALCIUM 40MG TABLET PO SCH (21:49)
[2019-08-11] MEDS: INSULIN GLARGINE UD 100 UNITS/ML SYR SUBCUT SCH (22:05)
[2019-08-12] MEDS: BLOOD SUGAR DIAGNOSTIC STRIP TEST SCH ×3 (06:19→16:22)
[2019-08-12] MEDS: INSULIN LISPRO 100 UNITS/ML SUBCUT SCH ×3 (07:01→16:46)
[2019-08-12 07:34] LABS: BASOPHILS % 0.7 % (0.0-2.0); EOSINOPHILS % 1.9 % (0.0-5.0); HEMATOCRIT. 37.9 % (42.0-52.0); HEMOGLOBIN. 12.9 g/dL (14.0-18.0); LYMPHOCYTES % 32.3 % (20.0-50.0); MEAN CORPUSCULAR HEMOGLOBIN 31.3 pg (28.0-32.0); MEAN CORPUSCULAR VOLUME 91.9 fL (80.0-94.0); MEAN PLATELET VOLUME 10.7 fl (7.4-10.4); MONOCYTES % 9.2 % (2.0-8.0); NEUTROPHILS % 55.9 % (40.0-76.0); PLATELET 157 x1000/uL (130-400); RED BLOOD CELL COUNT 4.13 mill/uL (4.7-6.1); RED CELL DISTRIBUTION WIDTH 12.6 % (11.6-14.6)
[2019-08-12 07:42] LABS: CHLORIDE 104 mEq/L (98-107)
[2019-08-12 08:00] VITALS: BP 144/95
[2019-08-12] MEDS: CLOPIDOGREL 75MG TABLET PO SCH (08:49)
[2019-08-12] MEDS: SPIRONOLACTONE 25MG TABLET PO SCH (08:50)
[2019-08-12] MEDS: NIFEDIPINE XL 60MG TAB PO SCH (08:50)
[2019-08-12] MEDS: BENAZEPRIL 10MG TABLET PO SCH (08:50)
[2019-08-12] MEDS: LEVETIRACETAM 500MG TABLET PO SCH (08:50)
[2019-08-12] MEDS: ASPIRIN 81MG TABLET PO SCH (08:51)
[2019-08-12] MEDS: CLONIDINE 0.2MG TABLET PO SCH (08:51)
[2019-08-12] MEDS: LABETALOL HCL 200MG TABLET PO SCH (08:51)
[2019-08-12] MEDS ORDERED: MAGNESIUM GLUCONATE 500MG TABLET PO SCH (09:00)
[2019-08-12] MEDS ORDERED: POTASSIUM CHLORIDE 20MEQ TABLET SR PO NR (09:00)
[2019-08-12] MEDS ORDERED: BENAZEPRIL 10MG TABLET PO SCH (09:00)
[2019-08-12] MEDS ORDERED: POTASSIUM CHLORIDE 20MEQ/PACKET PO NR (09:33)
[2019-08-12] MEDS ORDERED: CLOP75TA15 PO (10:54)
[2019-08-12] MEDS ORDERED: ASPI-1160 PO (10:54)
[2019-08-12] MEDS ORDERED: LIP40 PO (10:54)
[2019-08-12] MEDS ORDERED: LABE200T28 PO (10:54)
[2019-08-12] MEDS ORDERED: MAG500 PO (10:54)
[2019-08-12] MEDS ORDERED: INSLIS SUBCUT (10:54)
[2019-08-12] MEDS ORDERED: KEPP500 PO (10:54)
[2019-08-12] MEDS ORDERED: CLON0.2T12 PO (10:54)
[2019-08-12] MEDS ORDERED: BENA10TA74 PO (10:54)
[2019-08-12] MEDS ORDERED: LANTUSUD SUBCUT (10:54)
[2019-08-12] MEDS ORDERED: NIFE-32 PO (10:54)
[2019-08-12] MEDS ORDERED: SPIR25TA PO (10:54)
[2019-08-12 13:07] VITALS: BP 144/95
== END 2019-08-12 18:40 | disposition home health service (06) | DRG 45 ==
PROVIDERS: ADMIT Psychiatry & Neurology Neurology; ATTEND Internal Medicine
DX: I63.81 Other cerebral infarction due to occlusion or stenosis of small artery (principal); G92 Toxic encephalopathy; E11.65 Type 2 diabetes mellitus with hyperglycemia; E83.42 Hypomagnesemia; I11.9 Hypertensive heart disease without heart failure; I10 Essential (primary) hypertension; R47.01 Aphasia; E78.5 Hyperlipidemia, unspecified; E87.6 Hypokalemia; G40.909 Epilepsy, unspecified, not intractable, without status epilepticus; R32 Unspecified urinary incontinence; R47.1 Dysarthria and anarthria; R53.81 Other malaise; R26.9 Unspecified abnormalities of gait and mobility; R81 Glycosuria; Z79.4 Long term (current) use of insulin; Z86.73 Personal history of transient ischemic attack (TIA), and cerebral infarction without residual deficits; Z79.899 Other long term (current) drug therapy
CPT/HCPCS: 36415; 80048; 82962; 83735; 85025; 92523; 92610; 93970; 97110; 97112; 97116; 97163; 97166; 97530; 97535; J1815

== ENCOUNTER 2019-11-24 16:57 | Inpatient (IN) | payer MEDICAID ==
[~2019-11-24] VITALS: Ht 190.5 cm; Wt 102.1 kg
[~2019-11-24 16:57] MED LIST changes: +ASPI-1160 PO; +BENA10TA74 PO; -BENA20TA10 PO; +CLON0.2T12 PO; +CLOP75TA15 PO; +INSLIS SUBCUT; +LANTUSUD SUBCUT; -LEVVL SUBCUT; +LIP40 PO; +MAG500 PO; +NIFE-32 PO; -NIFE90TA2 PO; +SPIR25TA PO
[2019-11-24 18:59] LABS: BASOPHILS % 0.7 % (0.0-2.0); EOSINOPHILS % 1.3 % (0.0-5.0); HEMATOCRIT. 34.1 % (42.0-52.0); HEMOGLOBIN. 11.5 g/dL (14.0-18.0); LYMPHOCYTES % 15.7 % (20.0-50.0); MEAN CORPUSCULAR HEMOGLOBIN 31.7 pg (28.0-32.0); MEAN CORPUSCULAR VOLUME 94.4 fL (80.0-94.0); MEAN PLATELET VOLUME 11.3 fl (7.4-10.4); NEUTROPHILS % 75.3 % (40.0-76.0); PLATELET 137 x1000/uL (130-400); RED BLOOD CELL COUNT 3.61 mill/uL (4.7-6.1); RED CELL DISTRIBUTION WIDTH 14.1 % (11.6-14.6)
[2019-11-24 19:08] LABS: CHLORIDE 112 mEq/L (98-107)
[2019-11-24 19:13] LABS: ETHANOL BLOOD < 10 mg/dL; PROTHROMBIN TIME 10.9 sec (9.6-11.0)
[2019-11-24] MEDS ORDERED: FUROSEMIDE 40MG/4ML VIAL IVP ONE (20:45)
[2019-11-24 22:29] LABS: CLARITY URINE CLEAR (CLEAR); COLOR URINE YELLOW (YELLOW); KETONES URINE NEGATIVE (NEGATIVE); LEUKOCYTE ESTERASE URINE NEGATIVE (NEGATIVE); NITRITE URINE NEGATIVE (NEGATIVE); OCCULT BLOOD URINE NEGATIVE (NEGATIVE); PROTEIN URINE NEGATIVE (NEGATIVE); UROBILINOGEN URINE 0.2 E.U./dL (0.2-1.0)
[2019-11-24 23:00] LABS: *AMPHETAMINES SCREEN URINE NEGATIVE (NEGATIVE); *BARBITURATES SCREEN URINE NEGATIVE (NEGATIVE); *BENZODIAZEPINES SCREEN URINE NEGATIVE (NEGATIVE); *COCAINE SCREEN URINE NEGATIVE (NEGATIVE); METHADONE URINE SCREEN NEGATIVE (NEGATIVE); OPIATES URINE SCREEN NEGATIVE (NEGATIVE)
[2019-11-24 23:01] LABS: CANNABINOID URINE SCREEN NEGATIVE (NEGATIVE); PHENCYCLIDINE URINE SCREEN NEGATIVE (NEGATIVE)
[2019-11-24 23:22] VITALS: BP 141/87
[2019-11-25] VITALS: BP 152/93
[2019-11-25] MEDS ORDERED: DEXTROSE 50% WATER 50ML SYRINGE IV PRN (01:00)
[2019-11-25 04:00] VITALS: BP 164/92
[2019-11-25] MEDS: INSULIN LISPRO 100 UNITS/ML SUBCUT SCH ×4 (06:57→21:06)
[2019-11-25] MEDS: BLOOD SUGAR DIAGNOSTIC STRIP TEST SCH ×4 (06:57→21:06)
[2019-11-25 07:01] LABS: BASOPHILS % 0.8 % (0.0-2.0); EOSINOPHILS % 1.2 % (0.0-5.0); HEMATOCRIT. 33.3 % (42.0-52.0); HEMOGLOBIN. 11.2 g/dL (14.0-18.0); LYMPHOCYTES % 26.4 % (20.0-50.0); MEAN CORPUSCULAR HEMOGLOBIN 31.3 pg (28.0-32.0); MEAN CORPUSCULAR VOLUME 93.1 fL (80.0-94.0); MEAN PLATELET VOLUME 11.5 fl (7.4-10.4); MONOCYTES % 8.9 % (2.0-8.0); NEUTROPHILS % 62.7 % (40.0-76.0); PLATELET 134 x1000/uL (130-400); RED BLOOD CELL COUNT 3.57 mill/uL (4.7-6.1); RED CELL DISTRIBUTION WIDTH 13.7 % (11.6-14.6)
[2019-11-25 08:00] VITALS: BP 189/107
[2019-11-25] MEDS: HYDRALAZINE HCL 50MG TABLET PO SCH ×2 (08:40→21:05)
[2019-11-25] MEDS: FUROSEMIDE 40MG TABLET PO SCH (08:40)
[2019-11-25] MEDS: METOPROLOL TARTRATE 50MG TABLET PO SCH ×2 (08:40→21:05)
[2019-11-25] MEDS: LEVETIRACETAM 500MG TABLET PO SCH ×2 (08:41→21:05)
[2019-11-25] MEDS ORDERED: ASPIRIN 81MG TABLET PO SCH (09:00)
[2019-11-25] MEDS ORDERED: POTASSIUM CHLORIDE 20MEQ TABLET SR PO SCH (10:30)
[2019-11-25] MEDS ORDERED: ATORVASTATIN CALCIUM 40MG TABLET PO PRN (11:45)
[2019-11-25 12:00] VITALS: BP 175/78
[2019-11-25] MEDS ORDERED: ENOXAPARIN 40MG/0.4ML SYR SUBCUT SCH (12:00)
[2019-11-25] MEDS: INSULIN GLARGINE UD 100 UNITS/ML SYR SUBCUT SCH ×2 (12:41→22:30)
[2019-11-25] MEDS: ENOXAPARIN 100MG/ML SYR SUBCUT SCH ×2 (13:41→22:33)
[2019-11-25 16:00] VITALS: BP 208/121
[2019-11-25] MEDS: CLONIDINE 0.1MG TABLET PO PRN (18:02)
[2019-11-25 20:00] VITALS: BP 195/119
[2019-11-25] MEDS ORDERED: ATORVASTATIN CALCIUM 40MG TABLET PO SCH (21:00)
[2019-11-25] MEDS: ATORVASTATIN CALCIUM 40MG TABLET PO SCH (21:05)
[2019-11-26] VITALS: BP 157/113
[2019-11-26] MEDS: CLONIDINE 0.1MG TABLET PO PRN ×3 (00:57→23:59)
[2019-11-26 04:00] VITALS: BP 180/111
[2019-11-26] MEDS: BLOOD SUGAR DIAGNOSTIC STRIP TEST SCH ×4 (06:12→21:42)
[2019-11-26] MEDS: INSULIN LISPRO 100 UNITS/ML SUBCUT SCH ×4 (06:16→21:00)
[2019-11-26 06:52] LABS: CHLORIDE 106 mEq/L (98-107)
[2019-11-26 07:11] LABS: BASOPHILS % 0.5 % (0.0-2.0); EOSINOPHILS % 2.9 % (0.0-5.0); HEMATOCRIT. 38.5 % (42.0-52.0); HEMOGLOBIN. 12.8 g/dL (14.0-18.0); LYMPHOCYTES % 34.6 % (20.0-50.0); MEAN CORPUSCULAR HEMOGLOBIN 31.2 pg (28.0-32.0); MEAN CORPUSCULAR VOLUME 93.5 fL (80.0-94.0); MEAN PLATELET VOLUME 11.8 fl (7.4-10.4); MONOCYTES % 7.3 % (2.0-8.0); NEUTROPHILS % 54.7 % (40.0-76.0); PLATELET 147 x1000/uL (130-400); RED BLOOD CELL COUNT 4.12 mill/uL (4.7-6.1); RED CELL DISTRIBUTION WIDTH 13.5 % (11.6-14.6)
[2019-11-26 08:00] VITALS: BP 167/114
[2019-11-26] MEDS ORDERED: POTASSIUM CHLORIDE 20MEQ TABLET SR PO NR (09:00)
[2019-11-26] MEDS: HYDRALAZINE HCL 50MG TABLET PO SCH ×2 (09:00→21:42)
[2019-11-26] MEDS: ENOXAPARIN 100MG/ML SYR SUBCUT SCH ×2 (09:08→21:00)
[2019-11-26] MEDS: FUROSEMIDE 40MG TABLET PO SCH (09:09)
[2019-11-26] MEDS: METOPROLOL TARTRATE 50MG TABLET PO SCH ×2 (09:09→21:41)
[2019-11-26] MEDS: LEVETIRACETAM 500MG TABLET PO SCH ×2 (09:09→21:42)
[2019-11-26] MEDS: INSULIN GLARGINE UD 100 UNITS/ML SYR SUBCUT SCH ×2 (11:18→21:53)
[2019-11-26 12:00] VITALS: BP 160/90
[2019-11-26] MEDS ORDERED: APIX5TAB MT (14:05)
[2019-11-26 16:00] VITALS: BP 173/73
[2019-11-26 20:00] VITALS: BP 166/95
[2019-11-26] MEDS: ATORVASTATIN CALCIUM 40MG TABLET PO SCH (21:42)
[2019-11-27] VITALS (7 sets, daily range): BP systolic 131–188; BP diastolic 90–115
[2019-11-27] MEDS: BLOOD SUGAR DIAGNOSTIC STRIP TEST SCH ×2 (06:26→11:48)
[2019-11-27] MEDS: INSULIN LISPRO 100 UNITS/ML SUBCUT SCH ×2 (06:26→11:48)
[2019-11-27] MEDS: FUROSEMIDE 40MG TABLET PO SCH ×2 (08:49→12:48)
[2019-11-27] MEDS: ENOXAPARIN 100MG/ML SYR SUBCUT SCH (08:49)
[2019-11-27] MEDS: LEVETIRACETAM 500MG TABLET PO SCH ×2 (08:49→12:49)
[2019-11-27] MEDS: HYDRALAZINE HCL 50MG TABLET PO SCH (08:49)
[2019-11-27] MEDS: SPIRONOLACTONE 25MG TABLET PO SCH ×2 (08:49→12:48)
[2019-11-27] MEDS: METOPROLOL TARTRATE 50MG TABLET PO SCH ×2 (08:49→09:00)
[2019-11-27] MEDS: INSULIN GLARGINE UD 100 UNITS/ML SYR SUBCUT SCH (10:00)
[2019-11-27] MEDS ORDERED: LIDOCAINE HCL 2% JELLY 5ML ONE (10:20)
[2019-11-27] MEDS ORDERED: MIDAZOLAM HCL 2 MG/2 ML VIAL ONE (10:20)
[2019-11-27] MEDS ORDERED: FENTANYL CITRATE/PF 50MCG/ML 2ML VIAL ONE (10:21)
[2019-11-27] MEDS ORDERED: ASPI-1160 PO (12:42)
[2019-11-27] MEDS ORDERED: CLOP75TA15 PO (12:42)
[2019-11-27] MEDS: CLONIDINE 0.1MG TABLET PO PRN (12:50)
[2019-11-27] MEDS ORDERED: HYDRALAZINE HCL 100MG TABLET PO SCH (21:00)
[2019-11-28 17:06] LABS: ANTI-DNA DOUBLE STRANDED QUANT < 1 IU/mL (0-9)
[2019-11-30 04:06] LABS: ANTI-CARDIOLIPIN AB IGG < 9 GPL U/mL (0-14); DRVVT LA 38.1 sec (0.0-47.0); LUPUS ANTICOAG INTERPRETATION Comment: (.)
== END 2019-11-27 16:04 | disposition home health service (06) | DRG 45 ==
LOC: ER 16:57 → 5WST 20:32 → EDBEDREQ 20:37 → EDBEDREQTM 20:37 → ENRESERV 22:01
PROVIDERS: ADMIT Internal Medicine; ATTEND Internal Medicine
DX: I63.81 Other cerebral infarction due to occlusion or stenosis of small artery (principal); N17.0 Acute kidney failure with tubular necrosis; E44.1 Mild protein-calorie malnutrition; E87.8 Other disorders of electrolyte and fluid balance, not elsewhere classified; D64.9 Anemia, unspecified; E78.5 Hyperlipidemia, unspecified; I50.33 Acute on chronic diastolic (congestive) heart failure; G40.909 Epilepsy, unspecified, not intractable, without status epilepticus; E10.9 Type 1 diabetes mellitus without complications; I11.0 Hypertensive heart disease with heart failure; Z87.891 Personal history of nicotine dependence; Z79.82 Long term (current) use of aspirin; Z79.4 Long term (current) use of insulin; Z79.899 Other long term (current) drug therapy; Z68.28 Body mass index [BMI] 28.0-28.9, adult
CPT/HCPCS: 36415; 70544; 70551; 71045; 76770; 80048; 80053; 80061; 80305; 80320; 81003; 82010; 82962; 83036; 83605; 83880; 84484; 85025; 85306; 85613; 85732; 86140; 86147; 86225; 92523; 93005; 93306; 93312; 97116; 97162; 97166; 99285; J1650; J1815; J1940; J2250; J3010; G0480

== ENCOUNTER 2020-05-18 10:32 | Emergency (ER) | payer MEDICAID ==
[~2020-05-18] VITALS: Ht 188 cm; Wt 136.0 kg
[~2020-05-18 10:32] MED LIST changes: -BENA10TA74 PO; -CLON0.2T12 PO; -LANTUSUD SUBCUT
[2020-05-18 11:37] LABS: BASOPHILS % 0.9 % (0.0-2.0); EOSINOPHILS % 1.2 % (0.0-5.0); HEMATOCRIT. 25.1 % (42.0-52.0); HEMOGLOBIN. 7.7 g/dL (14.0-18.0); MEAN CORPUSCULAR HEMOGLOBIN 24.1 pg (28.0-32.0); MEAN CORPUSCULAR VOLUME 78.6 fL (80.0-94.0); MEAN PLATELET VOLUME 8.3 fl (7.4-10.4); MONOCYTES % 6.9 % (2.0-8.0); PLATELET 218 x1000/uL (130-400); RED BLOOD CELL COUNT 3.19 mill/uL (4.7-6.1); RED CELL DISTRIBUTION WIDTH 22.7 % (11.6-14.6)
[2020-05-18 11:42] LABS: CHLORIDE 109 mEq/L (98-107)
[2020-05-18 11:46] LABS: PROTHROMBIN TIME 10.5 sec (9.6-11.0)
[2020-05-18 12:29] LABS: PLATELET ESTIMATE NORMAL
[2020-05-18 16:04] VITALS: BP 140/77
== END 2020-05-18 15:30 | disposition home or self-care (01) ==
LOC: ER 10:42
DX: T68.XXXA Hypothermia, initial encounter (principal); X31.XXXA Exposure to excessive natural cold, initial encounter; E11.9 Type 2 diabetes mellitus without complications; I10 Essential (primary) hypertension; R56.9 Unspecified convulsions; Z86.73 Personal history of transient ischemic attack (TIA), and cerebral infarction without residual deficits; Z91.19 Patient's noncompliance with other medical treatment and regimen
CPT/HCPCS: 36415; 80053; 85025; 99283

== ENCOUNTER 2021-10-27 18:56 | Emergency (ER) | payer MEDICAID ==
[~2021-10-27] VITALS: Ht 190.5 cm; Wt 118.0 kg
[~2021-10-27 18:56] MED LIST changes: -LABE200T28 PO; +LABE200T9 PO
[2021-10-27] MEDS ORDERED: AMLODIPINE 10MG TABLET PO ONE (19:30)
[2021-10-27 19:47] LABS: BASOPHILS % 0.9 % (0.0-2.0); EOSINOPHILS % 2.6 % (0.0-5.0); HEMATOCRIT. 38.6 % (42.0-52.0); HEMOGLOBIN. 12.9 g/dL (14.0-18.0); LYMPHOCYTES % 35.7 % (20.0-50.0); MEAN CORPUSCULAR HEMOGLOBIN 30.6 pg (28.0-32.0); MEAN CORPUSCULAR VOLUME 91.9 fL (80.0-94.0); MEAN PLATELET VOLUME 11.2 fl (7.4-10.4); MONOCYTES % 9.5 % (2.0-8.0); NEUTROPHILS % 51.3 % (40.0-76.0); PLATELET 134 x1000/uL (130-400); RED CELL DISTRIBUTION WIDTH 13.1 % (11.6-14.6)
[2021-10-27 19:48] LABS: CHLORIDE 98 mEq/L (98-107)
[2021-10-27] MEDS ORDERED: POTASSIUM CHLORIDE 20MEQ TABLET SR PO NR (20:45)
[2021-10-27] MEDS ORDERED: LABETALOL 5MG/ML SYR 20 MG/4 ML SYRINGE IV ONE ×2 (21:00→22:00)
[2021-10-28] MEDS ORDERED: LABETALOL HCL 100MG TABLET PO NR (09:00)
[2021-10-28 13:27] VITALS: BP 167/120
== END 2021-10-28 13:28 | disposition home or self-care (01) ==
LOC: ER 18:56
DX: I10 Essential (primary) hypertension (principal); E11.9 Type 2 diabetes mellitus without complications; R56.9 Unspecified convulsions; I69.354 Hemiplegia and hemiparesis following cerebral infarction affecting left non-dominant side; Z79.4 Long term (current) use of insulin
CPT/HCPCS: 36415; 80053; 83880; 85025; 93005; 96374; 96376; 99285; J3490

== ENCOUNTER 2021-11-09 16:05 | Emergency (ER) | payer MEDICAID, OTHER ==
[~2021-11-09] VITALS: Ht 185.4 cm; Wt 114.0 kg
[2021-11-09 16:08] VITALS: BP 180/114
[2021-11-09] MEDS ORDERED: AMLODIPINE 10MG TABLET PO ONE (17:00)
== END 2021-11-09 18:08 | disposition home or self-care (01) ==
LOC: ER 16:05
DX: I10 Essential (primary) hypertension (principal); R56.9 Unspecified convulsions; E11.9 Type 2 diabetes mellitus without complications; I69.392 Facial weakness following cerebral infarction; W01.0XXA Fall on same level from slipping, tripping and stumbling without subsequent striking against object, initial encounter; Y93.89 Activity, other specified; Y92.9 Unspecified place or not applicable; Z79.4 Long term (current) use of insulin; Z79.82 Long term (current) use of aspirin
CPT/HCPCS: 93005; 99283

== ENCOUNTER 2024-10-08 16:39 | Emergency (ER) | payer MEDICAID ==
[~2024-10-08] VITALS: Ht 188 cm; Wt 90.0 kg
[~2024-10-08 16:39] MED LIST changes: -CLOP75TA15 PO; -ERGO2000 PO
[2024-10-08 16:52] VITALS: TEMP 36.9; O2SAT 99
[2024-10-08] MEDS ORDERED: NITROGLYCERIN 0.4MG TABLET SL SL PRN (18:00)
[2024-10-08 19:13] LABS: BASOPHILS % 0.8 % (0.0-2.0); EOSINOPHILS % 3.3 % (0.0-5.0); HEMATOCRIT. 39.4 % (42.0-52.0); HEMOGLOBIN. 12.8 g/dL (14.0-18.0); LYMPHOCYTES % 27.5 % (20.0-50.0); MEAN PLATELET VOLUME 11.5 fl (7.4-10.4); MONOCYTES % 10.3 % (2.0-8.0); NEUTROPHILS % 58.1 % (40.0-76.0); PLATELET 129 x1000/uL (130-400); RED BLOOD CELL COUNT 4.11 mill/uL (4.7-6.1); RED CELL DISTRIBUTION WIDTH 13.0 % (11.6-14.6)
[2024-10-08 19:25] LABS: CREATININE 2.0 mg/dL (0.6-1.3); TROPONIN I HIGH SENSITIVITY 28 ng/L (3.0-53); UREA NITROGEN BLOOD 30 mg/dL (9-23)
[2024-10-08 21:23] LABS: TROPONIN I HIGH SENSITIVITY 32 ng/L (3.0-53)
[2024-10-08 22:24] VITALS: BP 174/114; PULSE 68; RESP 15; O2SAT 100
== END 2024-10-08 22:29 | disposition home or self-care (01) ==
LOC: ER 16:39
DX: R53.1 Weakness (principal); E11.9 Type 2 diabetes mellitus without complications; I11.0 Hypertensive heart disease with heart failure; I50.9 Heart failure, unspecified; Z86.73 Personal history of transient ischemic attack (TIA), and cerebral infarction without residual deficits; Z79.899 Other long term (current) drug therapy
CPT/HCPCS: 36415; 71045; 80048; 83880; 84484; 85025; 93005; 99285; A4606